=== PATIENT | female | born 1935 | race Caucasian/White ===

== ENCOUNTER 2016-08-01 17:20 | Inpatient (IN) | payer OTHER ==
[~2016-08-01 17:20] MED LIST: TYLENOL PO PRN; VENTOLIN HFA INH PRN; ZOFRAN IV PRN
--- NOTE | 2016-08-01 17:47 | HISTORY AND PHYSICAL ---
HISTORY OF PRESENT ILLNESS: Mrs. Amna Oconnor is an 80-year-old lady with a history of COPD, labile hypertension secondary to renal artery stenosis and paroxysmal supraventricular tachycardia who is well known to me. She has had a longstanding history of labile hypertension. Dr. Garcia performed angioplasty and stenting of the left renal artery in March 2016. Since that time her blood pressure has been much more easily managed. Over the past several weeks her blood pressure has been fluctuating wildly. She denies any chest pain, palpitations, or anginal equivalents. Because she was noted also to have a right-sided renal artery stenosis we referred her to Dr. Garcia for consideration of angioplasty and stenting of the right renal artery. He was unable to perform the arteriogram as her creatinine had jumped from 0.9 to 2.1. She presented to my office today complaining of labile hypertension. Her blood pressure has run from 160-190 whereas her diastolic blood pressures have ranged from 70-95. Again she denies any chest pain, palpitations, or anginal equivalents. PAST MEDICAL HISTORY: As above. PAST SURGICAL HISTORY: Surgical breast biopsy, cataract surgery, hysterectomy. ALLERGIES: Levaquin. MEDICATIONS: Advair 250/50 one puff b.i.d. Amlodipine 5 mg b.i.d. Clonidine 0.1 mg b.i.d. Digoxin 125 mcg daily. Lasix 20 mg daily. Losartan 50 mg b.i.d. Multaq 400 mg b.i.d. ProAir inhaler 2 puffs q.6 hours as needed for shortness of breath. FAMILY HISTORY: Father at age 73. He had a heart disease status post NH and hypertension. Her mother at age 92. She had hypertension and stroke. SOCIAL HISTORY: She is a former smoker. She does not consume alcoholic beverages. She is a . REVIEW OF SYSTEMS: She denies any recent weight gain or weight loss. HEENT: She wears glasses. She is hard of hearing. CV: No chest pain, palpitations, or anginal equivalents. Pulmonary: No shortness of breath, PND, orthopnea. GI: No reflux, dysphagia, melena, hematochezia, change in bowel habits, or rectal bleeding. Endocrine: No polyuria, no polydipsia. No cold or heat intolerance. Skin: No easy bruisability. : No leakage of urine with coughing or laughing. Neurologic: No migraines or seizures. PHYSICAL EXAMINATION: GENERAL: This is an elderly, frail, 80-year-old lady in no apparent distress. Blood pressure 180/80, pulse 80, height 73 inches, weight 125 pounds, BMI 16.5 HEENT: Fundi with arteriolar wall thickening. Pupils equal, round, reactive to light. Extraocular eye movements intact. TMs without bullae. NECK: Supple. No masses, JVD or bruits. CV: Regular rate and rhythm. LUNGS: Clear. ABDOMEN: Soft, nontender, with active bowel sounds. No hepatosplenomegaly. No abdominal bruits. EXTREMITIES: Without edema. SKIN: No palpable purpura. : Breast and rectal exam is deferred. NEUROLOGIC: Nonfocal. ASSESSMENT AND PLAN: 1. Acute renal failure. I suspect her renal failure is related to the use of losartan following angioplasty and stenting of the left coronary artery. I am going to begin normal saline at 75 mL per hour and we will recheck a BMP in the morning. We will also check an ultrasound of the kidneys. 2. Labile hypertension secondary to renal artery stenosis. I am going to stop both the amlodipine and losartan. I will increase the clonidine to 0.1 mg t.i.d. and add Adalat 60 mg daily. I am hoping once her kidney function normalizes that Dr. Garcia can proceed with angioplasty and stenting of the right coronary artery. 3. Paroxysmal atrial fibrillation. 4. Paroxysmal supraventricular tachycardia. She remains in normal sinus rhythm. We will continue digoxin for rate control and Multaq 400 mg b.i.d. She has not been able to tolerate beta blockers due to significant bradycardia.
[2016-08-01] MEDS: NS 1,000 ML IV SCH (17:58)
[2016-08-01] MEDS: LOVENOX SUBQ SCH (17:58)
[2016-08-01] MEDS: MULTAQ PO SCH (20:53)
[2016-08-01] MEDS: CATAPRES PO SCH (21:05)
[2016-08-01] MEDS: PROCARDIA ER PO SCH (21:05)
--- NOTE | 2016-08-02 07:35 | Diag Imaging Result Document ---
PROCEDURE NAME: US RENAL 2 (RETROPER) COMPLETE - 08/01/2016 RENAL ULTRASOUND: COMPARISON: None available. FINDINGS: The right kidney is located in the pelvis. There are several simple-appearing right renal cysts measuring up to 1.9 cm in the greatest dimension. No definite solid renal mass or hydronephrosis is identified. The right kidney measures 9 cm and left kidney measures 9.5 cm in the greatest longitudinal axis. The right renal cortex measures up to 0.8 cm and the left renal cortex measures up to 1.2 cm in thickness. The urinary bladder is completely nondistended. IMPRESSION: 1. Pelvic right kidney noted incidentally. 2. Several right renal cysts. Essentially unremarkable renal ultrasound, otherwise.
--- NOTE | 2016-08-02 07:41 | Diag Imaging Result Document ---
PROCEDURE NAME: CHEST-2 VIEWS - 08/02/2016 FRONTAL AND LATERAL CHEST, TWO VIEWS: COMPARISON: 01/23/2015. FINDINGS: The lungs are hyperexpanded. There is increased AP diameter to the chest. The heart is mildly enlarged. There are increased interstitial markings bilaterally believed to be fibrosis. However, the findings are slightly more pronounced in the lung bases compared to the prior exam thus there may be underlying infiltrates versus progression of the fibrosis. A granuloma is found in the apex. No effusions. IMPRESSION: 1. Severe emphysema with fibrosis. 2. Atelectasis, progressive fibrosis, or even small underlying infiltrates in the lung bases. [facility]
[2016-08-02] MEDS: ADVAIR 250/50 DISKUS INH SCH ×2 (08:05→20:12)
[2016-08-02 08:38] LABS: HEMATOCRIT 32.8 % (37.0-47.0); HEMOGLOBIN 10.9 g/dL (12.0-16.0); MCH 28.2 PG (27-31); MCHC 33.2 g/dL (33-37); MCV 84.8 FL (81-99); MPV 9.4 FL (7.4-10.4); RBC 3.87 XMIL (4.2-5.4)
--- NOTE | 2016-08-02 08:48 | PROGRESS NOTE ---
DATE: 08/02/2016 SUBJECTIVE: Ms. Oconnor has a history of labile hypertension secondary to renal artery stenosis. She had stenting of the left renal artery in the fall of 2016. Her blood pressure had been fluctuating wildly recently, and we referred her to Dr. Garcia for consideration of angioplasty and stenting of the right renal artery. She was noted to have a creatinine of 2.1; her baseline creatinine is 0.9. We admitted the patient to [facility] and hydrated her overnight with fluids. The renal ultrasound was grossly unremarkable. She has a longstanding history of COPD and pulmonary fibrosis. Unfortunately, she has been on amiodarone in the past and is currently taking Multaq for paroxysmal SVT. Her chest x-rays showed pulmonary fibrosis. She is having more shortness of breath with activities of daily living. She is maintaining O2 saturations of 93% to 95% on room air. OBJECTIVE: Vital signs: Temperature 97.9 degrees, pulse 57, BP 141/58. CV: Regular rate and rhythm. Lungs: Distant breath sounds with increased period of expiration. Abdomen: Soft, nontender, with active bowel sounds. ASSESSMENT AND PLAN: 1. Acute renal failure. We will continue gentle hydration, and I am awaiting the results of basic metabolic panel this morning. Once her creatinine has normalized to baseline, I believe that we could discharge her to home. 2. Chronic, chronic obstructive pulmonary disease. She does have pulmonary fibrosis most likely secondary to Multaq and amiodarone. I am going to begin Brovana nebulizer twice daily and ipratropium nebulized three times daily. 3. Labile hypertension, secondary to renal artery stenosis. Her blood pressure looks much better this morning; it was 141/58. We will continue to hold losartan and amlodipine. We will continue the clonidine, as well as the Adalat.
[2016-08-02 08:54] LABS: CALCIUM 8.4 mg/dL (8.8-10.2); POTASSIUM 5.4 mmol/L (3.5-5.1)
[2016-08-02] MEDS ORDERED: CATAPRES PO SCH (09:00)
[2016-08-02] MEDS: CATAPRES PO SCH ×3 (09:14→17:06)
[2016-08-02] MEDS: NS 1,000 ML IV SCH (09:14)
[2016-08-02] MEDS: PROCARDIA ER PO SCH (09:14)
[2016-08-02] MEDS: MULTAQ PO SCH (09:15)
[2016-08-02] MEDS: ASPIRIN PO SCH (09:15)
[2016-08-02] MEDS: LANOXIN PO SCH (09:16)
--- NOTE | 2016-08-02 11:37 | PROGRESS NOTE ---
DATE: 08/02/2016 SUBJECTIVE: Mrs. Oconnor has a longstanding history of labile hypertension secondary to renal artery stenosis. She had previously had angioplasty and stenting of the left renal artery in March of 2016. He had recently seen Dr. Garcia in anticipation of performing angioplasty and stenting of the right coronary artery. Her creatinine was elevated at 2.1. Her renal function is improving. Her creatinine has dropped from 2.1 to 1.7. She is voiding freely. An ultrasound of the kidneys was unremarkable. She does have a history of severe emphysema and pulmonary fibrosis. She has taken amiodarone in the past and has been taking Multaq 400 mg b.i.d. She has shortness of breath with activities of daily living. She denies any PND, orthopnea, or increasing peripheral edema. OBJECTIVE: Vital signs: Temperature 97.5, pulse 90, respirations 19, BP 160/62. CV: Regular rate and rhythm. Lungs: Distant breath sounds with increased period of expiration. Abdomen: Soft, nontender, with active bowel sounds. ASSESSMENT AND PLAN: 1. Acute renal failure. I will continue gentle hydration with normal saline and recheck a BMP in the morning. If her renal function has normalized, I believe that we can discharge her home. 2. Accelerated hypertension due to renal artery stenosis. We will continue clonidine 0.1 mg t.i.d. and Adalat 60 mg daily. I would like to try to keep her systolic blood pressures in the 150s and 160s. Once her renal function has normalized, I would like to refer her to Dr. Garcia for consideration of angioplasty and stenting of the right coronary artery. 3. Severe chronic obstructive pulmonary disease with pulmonary fibrosis. She is maintaining excellent O2 sats on room air. I am going to continue the Advair 250/50 one puff b.i.d., and I am going to try a trial of Brovana nebulized b.i.d. and ipratropium nebulized t.i.d.
[2016-08-02] MEDS: LOVENOX SUBQ SCH (17:06)
[2016-08-02] MEDS: BROVANA NEB INH SCH (20:12)
[2016-08-02] MEDS ORDERED: BROVANA NEB ONE (20:54)
[2016-08-02] MEDS: ATROVENT NEB INH SCH (23:29)
[2016-08-03] MEDS: MULTAQ PO SCH ×3 (01:50→21:27)
[2016-08-03 07:42] LABS: CALCIUM 8.6 mg/dL (8.8-10.2); POTASSIUM 5.1 mmol/L (3.5-5.1)
[2016-08-03] MEDS: ATROVENT NEB INH SCH ×4 (08:02→23:43)
[2016-08-03] MEDS: ADVAIR 250/50 DISKUS INH SCH ×2 (08:05→20:00)
[2016-08-03] MEDS: BROVANA NEB INH SCH ×3 (08:07→19:59)
[2016-08-03] MEDS: LANOXIN PO SCH (09:05)
[2016-08-03] MEDS: ASPIRIN PO SCH (09:07)
[2016-08-03] MEDS: PROCARDIA ER PO SCH (09:07)
[2016-08-03] MEDS: CATAPRES PO SCH ×3 (09:07→21:27)
--- NOTE | 2016-08-03 14:39 | PROGRESS NOTE ---
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 The patient was admitted with acute renal failure and the chart was reviewed. Her creatinine was down to 1.7 yesterday but her baseline is about 0.9. She has not had any further difficulty with shortness of breath although yesterday after an albuterol treatment, she had some racing heart and nervousness associated with that. In addition, her roommate is somewhat labile and I think this upset her. OBJECTIVE: Vital signs: Last recorded blood pressure from 6 a.m. was 157/81, pulse rate 82, respiratory rate is listed as 19. Temperature is 98.0 degrees. Fluid balance positive 1520. PHYSICAL EXAMINATION: General: She is a thin, white female, in no acute distress. She is alert, oriented x4. She is conversive and appropriate. Lungs: Clear to auscultation. There is no wheezing. There is slightly increased expiratory phase. Cardiovascular: Regular. She is not tachycardic. Abdomen: Benign. Extremities: 1+ pitting edema in the dependent areas behind the calf. LABORATORY: Electrolytes were normal. BUN is 34. Creatinine 1.7 which is almost identical to yesterday. ASSESSMENT/PLAN: 1. Acute renal failure. 2. I will continue to hydrate the patient and up the rate of her IV to 100 mL/h. We will recheck a BMP in the morning. I told her that I was not comfortable with that lack of progress overnight and which she would need to stay at least an additional day. 3. The patient's COPD is stable. The albuterol seems to be setting her off a little bit beds and I may forego full scale albuterol treatment as a result of that. We will monitor the situation and see if that is a necessary move or not. 4. The patient's blood pressure is stable and in acceptable range. The Adalat CC may be contributing to her lower extremity edema. I plan to apply graduated compression stockings rather than intermittent pneumatic compression boots and see if this will help with the swelling as well as increase her intravascular volume. 5. Indications for further hospitalization are lack of progress on her acute renal failure and lower extremity edema.
[2016-08-03] MEDS: NS 1,000 ML IV SCH (15:42)
[2016-08-03] MEDS ORDERED: BROVANA NEB ONE (18:58)
[2016-08-04] MEDS: NS 1,000 ML IV SCH (06:50)
[2016-08-04 07:28] LABS: MANUAL DIFF NEEDED? NO
[2016-08-04 07:41] LABS: BASO% 0.1 % (0.0-0.8); EOS# 0.05 X1000 (0.0-0.7); EOS% 0.6 % (0.0-10.0); HEMATOCRIT 31.6 % (37.0-47.0); HEMOGLOBIN 10.6 g/dL (12.0-16.0); IMM GRAN# 0.02 X1000 (0.0-0.04); IMM GRAN% 0.2 % (0.0-0.5); LYMPH# 0.91 X1000 (1.2-3.4); LYMPH% 10.5 % (20.5-51.1); MCHC 33.5 g/dL (33-37); MCV 83.6 FL (81-99); MONO# 0.63 X1000 (0.11-0.59); MONO% 7.3 % (1.7-9.3); MPV 9.4 FL (7.4-10.4); NEUT% 81.3 % (42.2-75.2); PLT 385 X1000 (130-400); RBC 3.78 XMIL (4.2-5.4)
[2016-08-04] MEDS: ATROVENT NEB INH SCH ×2 (07:56→15:55)
[2016-08-04] MEDS: BROVANA NEB INH SCH ×2 (07:56→22:19)
[2016-08-04] MEDS: ADVAIR 250/50 DISKUS INH SCH ×3 (08:06→22:19)
[2016-08-04 08:17] LABS: CALCIUM 8.2 mg/dL (8.8-10.2); POTASSIUM 4.7 mmol/L (3.5-5.1)
[2016-08-04] MEDS: PROCARDIA ER PO SCH (09:16)
[2016-08-04] MEDS: LANOXIN PO SCH (09:16)
[2016-08-04] MEDS: CATAPRES PO SCH ×3 (09:16→18:34)
[2016-08-04] MEDS: ASPIRIN PO SCH (09:16)
[2016-08-04] MEDS: MULTAQ PO SCH ×2 (09:17→21:44)
[2016-08-04] MEDS: NS IV SCH (13:37)
[2016-08-04] MEDS: SODIUM BICARBONATE IV SCH (13:37)
[2016-08-04] MEDS: APRESOLINE PO SCH ×3 (13:45→18:34)
--- NOTE | 2016-08-04 14:11 | PROGRESS NOTE ---
DATE: 08/04/2016 SUBJECTIVE: The patient feels but her son noted that this morning when she got up to just got to the restroom she was absolutely breathless with minimal exertion. This is not necessarily the case on previous days. She knows that all of her extremities are swelling since receiving IV fluids. We discussed her laboratory studies. Although they are returning to normal, they have not reached baseline and I did not feel at her fluid balance is equilibrated as of yet. Her bicarb is also low. Blood pressure has also been ranging upward. OBJECTIVE: Vital signs: 97.6, 88, 21, 85/74, 100% saturated. The electronic health record reflects 3 L nasal cannula but she is not wearing it when I go in to see her. Fluid balance: Not kept. General: She is a thin, white female, in no acute distress. Lungs: Clear with increased expiratory phase. No wheezes are noted. Cardiovascular: Regular. There is no ectopy. Extremities: There is 1 to 2+ edema in the upper and lower extremities, particularly in dependent areas. She has some ecchymosis about the left elbow at the site of previous blood draws. ASSESSMENT AND PLAN: 1. The patient's creatinine is down to 1.4 from 1.7 yesterday. Her bicarb was down to 15 which is quite abnormal for someone with COPD. I plan to give her continued IV normal saline with some bicarb added and we will recheck this in about 48 hours. 2. Some of the swelling may be driven by the vascular primary ability afforded to her by the use of Adalat. I have discontinued this and will try hydralazine for blood pressure management. She will continue on clonidine. Will monitor blood pressure. According to Dr. Massey, she has had 1 renal artery stent placed in the other renal artery is stenotic but because of her bump in creatinine, we have not been able to address this surgically. 3. I have written a consult for rehabilitation placement. I spoke with the patient and her son and they are amenable to any plan which will eventually get her home and back to her previously functional status. 4. The patient did complain of occasional palpitations but no prolonged runs of SVT. She is on an antiarrhythmic agent already. 5. Indication for prolonged hospitalization. The patient's creatinine has not returned to baseline. Her bicarb continues to be low. She is profoundly weak. Continues to be short of breath. See above note for plan.
[2016-08-05] MEDS: SODIUM BICARBONATE IV SCH (04:36)
[2016-08-05] MEDS: NS IV SCH (04:36)
[2016-08-05] MEDS: ATROVENT NEB INH SCH ×3 (07:41→23:26)
[2016-08-05] MEDS: ADVAIR 250/50 DISKUS INH SCH ×2 (07:41→23:27)
[2016-08-05] MEDS: APRESOLINE PO SCH ×3 (08:15→17:31)
[2016-08-05] MEDS: ASPIRIN PO SCH (08:15)
[2016-08-05] MEDS: CATAPRES PO SCH ×3 (08:15→17:31)
[2016-08-05] MEDS: LANOXIN PO SCH (08:15)
[2016-08-05] MEDS: MULTAQ PO SCH ×2 (08:15→20:29)
[2016-08-05] MEDS ORDERED: LASIX IV ONE (08:33)
[2016-08-05] MEDS ORDERED: BROVANA NEB ONE (13:47)
--- NOTE | 2016-08-05 14:21 | PROGRESS NOTE ---
DATE: 08/05/2016 SUBJECTIVE: The patient complains of shortness of breath today. She states that she was just sitting there and felt short of breath. She did not have any chest pain or palpitations that went along with this. She was just suddenly aware of being short of breath. She is eating reasonably well. OBJECTIVE: Vital signs: 98.0, 89, 20, 184/65. She is 93% saturated on room air. Fluid balance was not kept. Her meals are listed as bites only. General: She is a thin, white female in no acute distress. She is breathing slightly harder than yesterday but this is a minimal finding. Lungs: She is not actively wheezing. She has reasonable air movement. She has full breath sounds in the posterior regions. Extremities: Peripheral edema in the lower extremities has been abated to a great degree with the use of compression stockings. Her upper extremity still have some dependent edema. LABORATORIES: Laboratory holiday today. ASSESSMENT AND PLAN: 1. The patient's kidney function was on the way to recovery but her bicarb was low so we added bicarb to her drip. She has been having low level infusion over the last 24 hours. I do not think she is markedly more anemic or edematous than she was earlier. Her shortness of breath is concerning for a bit of fluid overload, particularly given her blood pressure problem. I am going to give her a low dose of Lasix today to try and equilibrate this a bit. We will discontinue sodium bicarb and normal saline drip tomorrow. We will recheck labs at that time. 2. Chronic obstructive pulmonary disease. This appears to be stable. 3. The patient and family are requesting rehabilitation. A bed will likely be sought today.
[2016-08-05] MEDS: BROVANA NEB INH SCH ×2 (15:25→23:27)
[2016-08-06] MEDS ORDERED: SODIUM BICARBONATE IV SCH (04:00)
[2016-08-06] MEDS ORDERED: NS IV SCH (04:00)
[2016-08-06] MEDS: APRESOLINE PO SCH ×3 (05:16→21:09)
[2016-08-06] MEDS ORDERED: BROVANA NEB ONE (07:16)
[2016-08-06 07:26] LABS: MANUAL DIFF NEEDED? NO
[2016-08-06 07:36] LABS: BASO% 0.3 % (0.0-0.8); EOS% 1.3 % (0.0-10.0); HEMATOCRIT 33.2 % (37.0-47.0); HEMOGLOBIN 10.9 g/dL (12.0-16.0); LYMPH# 1.08 X1000 (1.2-3.4); LYMPH% 13.7 % (20.5-51.1); MCH 28.4 PG (27-31); MCHC 32.8 g/dL (33-37); MCV 86.5 FL (81-99); MONO# 0.67 X1000 (0.11-0.59); MONO% 8.5 % (1.7-9.3); NEUT% 76.2 % (42.2-75.2); PLT 366 X1000 (130-400); RBC 3.84 XMIL (4.2-5.4)
[2016-08-06] MEDS: ADVAIR 250/50 DISKUS INH SCH ×2 (07:38→21:00)
[2016-08-06] MEDS: BROVANA NEB INH SCH (07:38)
[2016-08-06] MEDS: ATROVENT NEB INH SCH (07:38)
[2016-08-06 07:40] LABS: CALCIUM 8.3 mg/dL (8.8-10.2); POTASSIUM 4.5 mmol/L (3.5-5.1)
[2016-08-06] MEDS ORDERED: CATAPRES PO SCH (08:00)
[2016-08-06] MEDS: MULTAQ PO SCH ×2 (09:04→20:09)
[2016-08-06] MEDS: LANOXIN PO SCH (09:05)
[2016-08-06] MEDS: ASPIRIN PO SCH (09:10)
[2016-08-06] MEDS: CATAPRES PO SCH ×2 (10:10→17:26)
[2016-08-06] MEDS ORDERED: CATAPRES PO ONE (10:15)
--- NOTE | 2016-08-06 13:28 | PROGRESS NOTE ---
DATE: 08/06/2016 SUBJECTIVE: Patient states that she still feels a bit short of breath. She has been eating well. She really cannot put her finger on why she is more short of breath. She denies any chest pain. Has not had any episodes of supraventricular tachycardia. OBJECTIVE: 97.8, 92, 20 and 185/76. Fluid balance: Again these were not kept. PHYSICAL EXAM: Lungs: Clear. She has increased expiratory phase with probably baseline air movement. There is no wheezing. Cardiovascular: Regular and her precordium was rather hyperdynamic possibly due to her overall thinness. She has in edema in her upper extremities in the dependent areas. Lower extremity edema is improved with the compression stockings. LABORATORIES: White cell count 7.9, hematocrit 33.2. CO2 was up to 21. BUN 25, creatinine 1.3. ASSESSMENT AND PLAN: 1. The patient's acute renal failure continues to improve. She has improved CO2 although it is still low relative to someone who suffers from chronic COPD. Her creatinine is 1.3. I plan to discontinue her IV fluids and let all that edema somewhat equilibrate with her and then recheck her kidneys. I think it is safe for her to go on to rehabilitation and the social science instructor will contact the patient today about her preferences. 2. I noted on the patient's orders that she was getting Spiriva 3 times a day, anticholinergic by nebulizer as well as Brovana. I wonder if she is just getting hyperdynamic and tachycardic as a result of overstimulation by beta-agonist. Since she was on Advair before I changed her back to her usual dose of Advair only. I have discontinued the Brovana and I have changed her anticholinergic to once a day Spiriva. We will see how this makes her feel. 3. Rehabilitation bed is being sought. 4. It is not clear to me why physical therapy came and saw her over the weekend but has not seen her since that time. Clearly an order was written and clear that she was seen at 1 time but no longer. I will check into this.
[2016-08-07] MEDS: CATAPRES PO SCH ×3 (00:45→16:54)
[2016-08-07] MEDS: APRESOLINE PO SCH ×4 (03:41→19:59)
[2016-08-07] MEDS ORDERED: LASIX IV ONE (07:19)
[2016-08-07] MEDS: SPIRIVA INH SCH (07:44)
[2016-08-07] MEDS: ADVAIR 250/50 DISKUS INH SCH ×2 (07:44→19:15)
[2016-08-07] MEDS ORDERED: COZAAR PO SCH (09:00)
[2016-08-07] MEDS: LANOXIN PO SCH (09:29)
[2016-08-07] MEDS: ASPIRIN PO SCH (09:30)
[2016-08-07] MEDS: MULTAQ PO SCH ×2 (09:30→19:59)
--- NOTE | 2016-08-07 12:23 | PROGRESS NOTE ---
DATE: 08/07/2016 SUBJECTIVE: The patient states that she is breathing better today. She feels more comfortable, although she still breathless when she gets up, which does not seem as quite as intense. We discussed the end oversight on her respiratory medications. The patient and her son wondered why her aerosols have been discontinued and I explained the rationale. My last note that was taken listed her as having Spiriva 3 times a day. Actually, she was getting an anti-cholinergic respiratory treatment 3 times a day, as well as Brovana twice a day and Advair twice a day. Since going to the Spiriva and Advair mixture, her heart rate has slowed significantly and she feels better. I also discussed with her that her physical therapy had not been followed through since the weekend, according to the notes on the chart. OBJECTIVE: Vital Signs: Temperature is 97.5 degrees, pulse rate 69, blood pressure 185/71. She is 92% saturated on room air. Lungs: Patient's lungs are clear. She has an increased expiratory phase and generally fair air movement. She is in no distress. Cardiovascular: Regular in the 60s. Upper extremities: Show some resolution of the upper extremity edema, but not completely so. Lower extremities: Have compression stockings on. LABORATORIES: None today. ASSESSMENT AND PLAN: 1. The patient's acute renal failure was improved to a level 1.3 yesterday. Her CO2 improved. She is no longer on IV fluids. I think we are headed the right direction on this, but she will eventually need her renal artery stenosis addressed. 2. Aerosol treatments have been discontinued. She is doing well on Advair plus Spiriva only. 3. Yesterday I increased her clonidine to 0.2 three times a day, which did absolutely nothing for her blood pressure. I have brought her back down to 0.1 mg of clonidine 3 times daily. She will continue her hydralazine 50 mg three times daily. I have added a low dose of losartan 25 mg daily. We will continue to monitor her kidney function, with repeat labs in the morning. 4. Rehabilitation bed is being sought. 5. I contacted physical therapy personally to make sure that she was included on a daily list.
[2016-08-07] MEDS ORDERED: VASOTEC IV ONE (20:09)
[2016-08-08] MEDS: CATAPRES PO SCH ×3 (00:59→16:48)
[2016-08-08] MEDS: APRESOLINE PO SCH ×3 (04:28→21:10)
[2016-08-08] MEDS: ADVAIR 250/50 DISKUS INH SCH ×3 (07:57→20:16)
[2016-08-08] MEDS: SPIRIVA INH SCH (07:57)
[2016-08-08 08:23] LABS: CALCIUM 8.1 mg/dL (8.8-10.2); POTASSIUM 4.1 mmol/L (3.5-5.1)
--- NOTE | 2016-08-08 09:25 | PROGRESS NOTE ---
DATE: 08/08/2016 SUBJECTIVE: Ms. Oconnor was admitted to [facility] with acute renal failure. Her creatinine was 2.1. Her creatinine has dropped to 1.3. She is voiding freely. Her blood pressure remains quite labile. She denies any chest pain, palpitations, or anginal equivalents. She does have a history of renal artery stenosis. She has a history of severe chronic obstructive pulmonary disease with pulmonary fibrosis. She is maintaining O2 saturations of 91% to 93% on room air. She was unable to tolerate the Brovana and ipratropium secondary to tachycardia. She reports that she is breathing comfortably at rest, but does have shortness of breath with activity. She denies any PND, orthopnea or increasing peripheral edema. OBJECTIVE: Vital Signs: BP 196/66, pulse 74, respirations 15. CV: Regular rate and rhythm. Lungs: Clear. Abdomen: Soft, nontender, with active bowel sounds. ASSESSMENT AND PLAN: Accelerated hypertension. Her blood pressure is still too high. We will continue clonidine 0.1 mg three times a day and added Adalat 30 mg daily. We will continue hydralazine. I will consult Dr. Jg Garcia for consideration of performing an arteriogram with angioplasty and stenting of the right renal artery. Overall she is weak. We will continue physical therapy. We will attempt to find her a short-term rehabilitation bed.
[2016-08-08] MEDS: MULTAQ PO SCH ×2 (09:34→21:10)
[2016-08-08] MEDS: ADALAT CC PO SCH (09:35)
[2016-08-08] MEDS: ASPIRIN PO SCH (09:35)
[2016-08-08] MEDS: LANOXIN PO SCH (09:35)
--- NOTE | 2016-08-08 09:43 | EKG Report ---
Test Performed on : 08/07/2016 7:32:41 PM Test Reason : chest pain Blood Pressure : / mmHG Vent. Rate : 075 BPM Atrial Rate : 075 BPM P-R Int : 192 ms QRS Dur : 100 ms QT Int : 358 ms P-R-T Axes : 038 032 025 degrees QTc Int : 399 ms Normal sinus rhythm. with sinus arrhythmia. Nonspecific ST abnormality Abnormal ECG When compared with ECG of 18-JUL-2016 09:20, Left anterior fascicular block is no longer present Confirmed by Lilian QUINTEROS, Gilberto Saavedra ([id number]) on 08/10/2016 1:13:20 PM
[2016-08-09] MEDS: CATAPRES PO SCH ×2 (01:54→11:36)
[2016-08-09] MEDS: APRESOLINE PO SCH ×2 (05:40→12:38)
[2016-08-09 07:48] VITALS: BP 170/63
[2016-08-09] MEDS: ADVAIR 250/50 DISKUS INH SCH (08:46)
[2016-08-09] MEDS: SPIRIVA INH SCH (08:46)
--- NOTE | 2016-08-09 09:47 | PROGRESS NOTE ---
DATE: 08/09/2016 SUBJECTIVE: Ms. Oconnor was admitted to [facility] with acute renal failure. Renal function continues to improve. Her creatinine has dropped from 2.1 to 1.3. She is voiding freely. A renal ultrasound was unremarkable. She does have a history of severe chronic obstructive pulmonary disease with pulmonary fibrosis. She is maintaining O2 saturations of 90% to 94%. She ambulated in the halls and had less dyspnea. Her blood pressure is trending down, but still fluctuates. Systolic blood pressures have ranged from 146-170, whereas her diastolic blood pressures have been in the 50s and 60s. She is making slow progress with physical therapy. OBJECTIVE: Vital signs: Temperature 97.9 degrees, pulse 82, respirations 16, BP 170/63. CV: Regular rate and rhythm. Lungs: Distant breath sounds with increased period of expiration. Abdomen: Soft, nontender, with active bowel sounds. ASSESSMENT AND PLAN: 1. Chronic, chronic obstructive pulmonary disease, acute chronic obstructive pulmonary disease exacerbation. We will continue DuoNeb nebulizer treatments four times daily, as well as Spiriva one puff daily and Advair 250/50 one puff b.i.d. 2. Acute renal failure. Renal function continues to improve. We will recheck a basic metabolic panel this morning. 3. Accelerated hypertension secondary to renal artery stenosis. We will continue to adjust medicines in order to keep systolic blood pressures consistently in the 160s or below. Dr. Garcia wants to wait to perform an elective arteriogram with potential intervention until after she completes rehabilitation. 4. Physical debility. We will continue physical therapy and are looking for rehabilitation .
[2016-08-09 10:06] LABS: CALCIUM 8.3 mg/dL (8.8-10.2); POTASSIUM 4.5 mmol/L (3.5-5.1)
--- NOTE | 2016-08-09 11:20 | DISCHARGE SUMMARY ---
ADMISSION DATE: 08/01/2016 DISCHARGE DATE: 08/09/2016 DISCHARGE DIAGNOSES: 1. Acute renal failure secondary to acute tubular necrosis. 2. Accelerated hypertension secondary to renal artery stenosis. 3. Paroxysmal supraventricular tachycardia. 4. Severe COPD with pulmonary fibrosis. DISCHARGE INSTRUCTIONS: 1. The patient will be transferred via ambulance to [facility] in order to undergo short-term rehab. 2. Activity as tolerated. 3. Healthy heart diet. MEDICATIONS: Aspirin 81 mg daily. Catapres 0.1 mg t.i.d. Lanoxin 125 mcg daily. Multaq 400 mg b.i.d. Apresoline 50 mg q.8 hours. Adalat 30 mg daily. Advair 250/50 one puff b.i.d. Spiriva 1 puff daily. Lasix 40 mg daily. This is a chronically ill-appearing, 80-year-old lady in no apparent distress. Vital signs: Temperature 97.9 degrees, pulse 82, respiratory rate 15, BP 160/63. CV: Regular rate and rhythm. Lungs: Distant breath sounds with increased period of expiration. Abdomen: Soft, nontender, with active bowel sounds. HOSPITAL COURSE: Ms. Amna Oconnor was admitted to [facility] with acute renal failure. Her baseline creatinine is 0.9, her creatinine was 2.1. We admitted her to [facility] and cautiously rehydrated her with normal saline. We stopped the losartan. A renal ultrasound was grossly normal. There was no evidence of hydronephrosis. Her creatinine trended down with fluids and her creatinine was 1.3 at the time of discharge. She was voiding freely. She has a longstanding history of accelerated hypertension secondary to renal artery stenosis. She had angioplasty and stenting of the left renal artery. Her blood pressure fluctuates significantly. On admission we stopped the losartan and Norvasc. During her hospitalization we increased the clonidine to 0.1 mg t.i.d. and added hydralazine 50 mg t.i.d. and Procardia XL 30 mg daily. Her blood pressure was trending down. At the time of discharge her systolic blood pressures had ranged from 146-170 whereas her diastolic blood pressures had ranged from 58-64. It is our goal to try to keep her systolic blood pressures in the 160s or below. Dr. Nav Garcia saw her in consultation and will schedule her for elective arteriogram with possible angioplasty and intervention of the right renal artery after she completes short-term rehab. She does have a longstanding history of chronic obstructive pulmonary disease with severe pulmonary fibrosis. We tried her on a trial of Brovana and ipratropium. She was unable to tolerate those medications due to palpitations and a fast heart rate. We switched her to Spiriva and Advair. Her breathing improved. She still has some shortness of breath, with marked exertion. She was maintaining O2 saturations of 92% on room air. She has a history of paroxysmal SVT. She was continued on digoxin, Toprol-XL for rate control and Multaq 400 mg b.i.d. She had previously taken amiodarone. The patient has remained in normal sinus rhythm. Having reached maximum hospital benefit, the patient was discharged in stable condition.
[2016-08-09] MEDS: LANOXIN PO SCH (11:35)
[2016-08-09] MEDS: ADALAT CC PO SCH (11:35)
[2016-08-09] MEDS: MULTAQ PO SCH (11:35)
[2016-08-09] MEDS: ASPIRIN PO SCH (11:36)
== END 2016-08-09 13:51 | DRG 683 ==
LOC: EDIPHOLD 17:25 → 3N 19:22
PROVIDERS: ADMIT Internal Medicine; ATTEND Internal Medicine
DX: N17.0 Acute kidney failure with tubular necrosis (principal); I47.1 Supraventricular tachycardia; I48.0 Paroxysmal atrial fibrillation; J84.10 Pulmonary fibrosis, unspecified; J44.9 Chronic obstructive pulmonary disease, unspecified; I10 Essential (primary) hypertension; I70.1 Atherosclerosis of renal artery; Z79.899 Other long term (current) drug therapy; Z79.82 Long term (current) use of aspirin; Z79.51 Long term (current) use of inhaled steroids; Z82.49 Family history of ischemic heart disease and other diseases of the circulatory system; Z82.3 Family history of stroke; Z87.891 Personal history of nicotine dependence
CPT/HCPCS: 71020; 76770; 80048; 85025; 85027; 93005; 93010; 94640; 94761; J1650; J1940; J7030; 97116-GP; 97530-GP

== ENCOUNTER 2016-10-24 13:04 | Inpatient (IN) ==
[2016-10-24 14:00] LABS: BASO% 0.3 % (0.0-0.8); EOS# 0.09 X1000 (0.0-0.7); EOS% 1.2 % (0.0-10.0); HEMATOCRIT 28.9 % (37.0-47.0); HEMOGLOBIN 9.3 g/dL (12.0-16.0); LYMPH# 0.93 X1000 (1.2-3.4); LYMPH% 12.3 % (20.5-51.1); MANUAL DIFF NEEDED? NO; MCH 29.2 PG (27-31); MCHC 32.2 g/dL (33-37); MCV 90.9 FL (81-99); MONO# 0.62 X1000 (0.11-0.59); MONO% 8.2 % (1.7-9.3); MPV 9.4 FL (7.4-10.4); PLT 486 X1000 (130-400); RBC 3.18 XMIL (4.2-5.4)
[2016-10-24 14:12] LABS: INR 1.01; PROTIME 10.6 Seconds (9.2-11.7); PTT 26.1 Seconds (22.0-36.0)
--- NOTE | 2016-10-24 14:12 | Diag Imaging Result Doc PS360 ---
EXAM: CHEST-PORTABLE HISTORY: sob TECHNIQUE: AP portable erect at 1406 COMMENT: There is increasing alveolar opacity bilaterally consistent with pulmonary edema. The heart size is slightly enlarged. Possibility of pneumonia cannot be completely excluded. IMPRESSION: Pulmonary edema and cardiomegaly. Electronically signed by Trey Stanford 10/24/2016 2:10 PM
[2016-10-24] MEDS ORDERED: LASIX IV ONE (14:20)
[2016-10-24] MEDS ORDERED: NITROGLYCERIN TOP ONE (14:23)
[2016-10-24 15:02] LABS: ALBUMIN 3.3 g/dL (3.5-5.0); CALCIUM 8.1 mg/dL (8.8-10.2); POTASSIUM 4.1 mmol/L (3.5-5.1); TOTAL BILIRUBIN 0.35 mg/dL (0.20-1.00); TOTAL PROTEIN 6.8 g/dL (6.3-8.3)
--- NOTE | 2016-10-24 15:39 | PROVIDER DOCUMENTATION ---
This chart was entered by Guzman Baires Scribe, acting as scribe for Jg Chin MD. HPI-Respiratory General - General Chief Complaint: Shortness of Breath Stated Complaint: sob Time Seen by Provider: 10/24/16 13:13 Source: patient Allergies/Adverse Reactions: Patient Allergies Allergy/AdvReac Type Severity Reaction Status Date / Time levofloxacin [From Levaquin] Allergy Severe Unknown Verified 10/24/16 13:44 Home Medications: Home Medication List Medication Instructions Recorded Confirmed Last Taken Type Aspirin 81 mg PO DAILY 03/21/16 10/24/16 10/24/16 History Furosemide [Lasix] 40 mg PO DAILY 07/18/16 10/24/16 10/24/16 History Digoxin [Lanoxin] 125 microgm PO DAILY #30 tablet 08/09/16 10/24/16 10/24/16 Rx Dronedarone [Multaq] 400 mg PO BID #60 tablet 08/09/16 10/24/16 10/24/16 Rx Fluticasone/Salmet 250/50 INH 1 puff INH BID #1 inhaler 08/09/16 10/24/16 Rx [Advair 250/50 Diskus] Hydralazine [Apresoline] 50 mg PO Q8H #90 tablet 08/09/16 10/24/16 10/24/16 Rx Nifedipine E.r. [Adalat cc] 30 mg PO DAILY #30 tablet 08/09/16 10/24/16 Rx Tiotropium [place] Inhaler 1 puff INH RTDAILY #1 inhaler 08/09/16 10/24/1610/24 Rx [Spiriva] - History of Present Illness-Resp Nature of Presenting Problem: Patient is a 81 y/o F that presents with shortness of breath and edema x several weeks in which it got worse today. Patient is followed by , , and . Patient denies fever/chills, chest pain. Quality of Pain: reports: tightness Severity in ED: reports: moderate, severe Onset/Duration: reports: gradual, other (several weeks) Timing: reports: still present, getting worse (last 24 hours) Context: denies: recent URI, aspiration/choking Cough Quality/Degree: reports: no cough Modifying Factors: worse with: exertion, lying down Associated Symptoms: reports: shortness of breath, short of breath. denies: chest pain/soreness, cough, fever/chills, nasal congestion, nasal drainage, wheezing Similar Symptoms Previously?: Yes Recently seen or treated by another doctor?: No Review of Systems - Adult - REVIEW OF SYSTEMS - ADULT Constitutional: denies: chills, fever Eyes: reports: no symptoms reported Ears, Nose, Mouth & Throat: reports: no symptoms reported Cardiovascular: reports: edema. denies: palpitations, syncope Respiratory: reports: dyspnea on exertion, shortness of breath. denies: wheezing Gastrointestinal: denies: abdominal pain, diarrhea, nausea, vomiting Genitourinary: reports: no symptoms reported Musculoskeletal: reports: no symptoms reported Integumentary: reports: no symptoms reported Neurological: reports: no symptoms reported Psychiatric: reports: no symptoms reported Endocrine: reports: no symptoms reported Hematologic/Lymphatic: reports: no symptoms reported Allergic/Immunologic: reports: no symptoms reported All Other Systems: Reviewed and Negative Past History - Adult - PAST MEDICAL HISTORY-ADULT Review of Records: reports: Old Records Reviewed, Nursing Assessment Review, Medications Reviewed Cardiovascular: reports: HTN Respiratory: reports: COPD - PRIOR SURGERIES/PROCEDURES Surgical/Procedure History: reports: other (L nephrectomy) - IMMUNIZATION STATUS Childhood Immunizations: See Nurse Assessment Flu Vaccine: See Nurse Assessment - FAMILY HISTORY Family History: reviewed, not pertinent - SOCIAL HISTORY Smoking: quit greater than 1 year, cigarettes Living Situation: family Physical Exam-General - PHYSICAL EXAM-ADULT Initial Vital Signs Reviewed: Yes - CONSTITUTIONAL General Appearance: alert, moderate distress - EYES Eyes: PERRL/EOMI, pink conjunctivae - HEAD, EARS, NOSE, MOUTH & THROAT HENMT: normocephalic/atraumatic, moist mucous membranes, normal ENT inspection - NECK Neck: full range of motion, normal inspection - RESPIRATORY Respiratory: no accessory muscle use, respiratory distress (mild), decreased breath sounds (at bases) - CARDIOVASCULAR Cardiovascular: regular rate, rhythm, no murmur - GASTROINTESTINAL (ABDOMEN) Abdominal Exam: normal bowel sounds, non tender, soft - MUSCULOSKELETAL Back Exam: other (edema noted to sacral area). negative: vertebral tenderness Extremity: no calf tenderness, pedal edema (bilateral 4 plus pitting) - SKIN Integumentary: normal turgor, warm/dry - NEUROLOGIC Neurologic: grossly normal, no motor/sensory deficits Progress - PLAN OF CARE/RESULTS Progress/Plan/Lab Results: Vital Signs - 8 hr 10/24/16 13:27 10/24/16 14:16 10/24/16 15:13 Temperature 98.2 F Pulse Rate 73 74 70 Respiratory Rate 24 25 H 18 Blood Pressure 139/53 141/71 151/67 O2 Sat by Pulse Oximetry 91 L 93 L 94 L Laboratory Results - last 24 hr 10/24/16 10/24/16 10/24/16 13:21 13:21 13:21 WBC 7.54 RBC 3.18 L Hgb 9.3 L Hct 28.9 L MCV 90.9 MCH 29.2 MCHC 32.2 L RDW Std Deviation 16.0 H Plt Count 486 H MPV 9.4 Neut % (Auto) 78.0 H Lymph % (Auto) 12.3 L [place] % (Auto) 8.2 Eos % (Auto) 1.2 Baso % (Auto) 0.3 Neut # (Auto) 5.88 Lymph # (Auto) 0.93 L [place] # (Auto) 0.62 H Eos # (Auto) 0.09 Baso # (Auto) 0.02 PT 10.6 INR 1.01 PTT (Actin FS) 26.1 Sodium 139 Potassium 4.1 Chloride 104 Carbon Dioxide 21 L Anion Gap 14 BUN 36 H Creatinine 1.9 H Estimated GFR/1.73 m2 25 BUN/Creatinine Ratio 19 Glucose 102 Calculated Osmolality 286 Calcium 8.1 L Total Bilirubin 0.35 AST 26 ALT 13 Alkaline Phosphatase 89 Creatine Kinase 78 Troponin T Total Protein 6.8 Albumin 3.3 L Globulin 3.5 Albumin/Globulin Ratio 0.9 10/24/16 13:21 WBC RBC Hgb Hct MCV MCH MCHC RDW Std Deviation Plt Count MPV Neut % (Auto) Lymph % (Auto) [place] % (Auto) Eos % (Auto) Baso % (Auto) Neut # (Auto) Lymph # (Auto) [place] # (Auto) Eos # (Auto) Baso # (Auto) PT INR PTT (Actin FS) Sodium Potassium Chloride Carbon Dioxide Anion Gap BUN Creatinine Estimated GFR/1.73 m2 BUN/Creatinine Ratio Glucose Calculated Osmolality Calcium Total Bilirubin AST ALT Alkaline Phosphatase Creatine Kinase Troponin T 0.040 Total Protein Albumin Globulin Albumin/Globulin Ratio Orders Category Date Time Status cxr [CHEST-PORTABLE] [RAD] Stat Exams 10/24/16 13:46 Completed CBC WITH ELECTRONIC DIFF [HEME] Stat Lab 10/24/16 13:21 Completed CK PROFILE [SP CHEM] Stat Lab 10/24/16 13:21 Completed COMPREHENSIVE METABOLIC PANEL [CHEM] Stat Lab 10/24/16 13:21 Completed PROTIME WITH INR [COAG] Stat Lab 10/24/16 13:21 Completed PTT [COAG] Stat Lab 10/24/16 13:21 Completed TROPONIN T Stat Lab 10/24/16 13:21 Completed Furosemide [Lasix] Med 10/24/16 14:20 Discontinued 80 mg IV NOW ONE Nitroglycerin Med 10/24/16 14:23 Discontinued 1 inch TOP NOW ONE Result Diagrams: 10/24/16 13:21 10/24/16 13:21 - REASSESSMENT Reassessment #1 Time Reassessed: 15:19 Status: unchanged (I spoke with Dr Massey via telephone and reported lab, physical findings , x ray findings, etc. Dr Massey reported that he would be over shortly and hung up the phone.) - XRAY 1 XRAY Study: Chest Impression: Abnormal XRAY Interpretation: pulmonary edema and CMG Departure - Departure Date of Disposition Decision: 10/24/16 Time of Disposition Decision: 15:36 DIAGNOSIS: Pulmonary edema Disposition: ADMITTED INPATIENT 09 Certified Medical Emergency: Emergent Condition: Fair - Critical Care Note This patient required my direct & personal management of CC.: Yes This chart was documented by the indicated scribe, (Guzman Baires, Scribe) and accurately reflects the services I performed and decisions made by me, Jg Chin MD, as attested by the provider's signature.
[2016-10-24] MEDS ORDERED: TYLENOL PO PRN (17:17)
[2016-10-24] MEDS ORDERED: DESYREL PO PRN (17:17)
[2016-10-24] MEDS ORDERED: ZOFRAN IV PRN (17:17)
[2016-10-24 17:25] LABS: URINE CULTURE NEEDED? NO; URINE MICRO REVIEW NEEDED? NO; URINE SOURCE CATH
[2016-10-24 17:42] LABS: BILIRUBIN URINE NEGATIVE (NEGATIVE); BLOOD URINE NEGATIVE (NEGATIVE); COLOR YELLOW; GLUCOSE URINE NEGATIVE (NEGATIVE); LEUKOCYTES URINE NEGATIVE (NEGATIVE); NITRITE URINE NEGATIVE (NEGATIVE); PH URINE 5.5; PROTEIN URINE 100 mg/dL (NEGATIVE); TURBIDITY URINE CLEAR (CLEAR); UROBILINOGEN URINE NORMAL (NORMAL)
[2016-10-24 17:43] LABS: UR EPITHELIAL CELLS <10 /HPF (<10); URINE BACTERIA NEGATIVE /HPF; URINE RBC <10 /HPF (<10); URINE WBC <10 /HPF (<10)
[2016-10-24 17:59] LABS: ALLEN TEST YES; BLOOD TYPE ARTERIAL; DRAW SITE R RADIAL; METHB 0.5 % (0.0-1.5); O2(CT) 11.4 mL/dL (15.0-23.0); PCO2(98.6) 31 mmHg (35-45); PO2(98.6) 51 mmHg (60-100); SAMPLE BLOOD; SAO2 90.4 % (95.0-100.0); THB 9.1 g/dL (11.5-17.4); pH(98.6) 7.48 (7.35-7.45)
[2016-10-24 18:01] LABS: MODALITY CANNULA
--- NOTE | 2016-10-24 18:09 | HISTORY AND PHYSICAL ---
HISTORY OF PRESENT ILLNESS: Ms. Amna Oconnor is an 81-year-old lady with a history of chronic respiratory failure with hypoxia secondary to severe COPD, labile hypertension secondary to renal artery stenosis, paroxysmal supraventricular tachycardia, and essential hypertension, who is well known to me. She also has a history of chronic renal insufficiency. Her baseline creatinine runs from 1.8-2.2. She presented to the ER complaining of increasing shortness of breath, increasing work of breathing, persistent nonproductive cough, and generalized malaise. Her chest x-ray showed chronic COPD-type changes, with bilateral interstitial edema. A previous echocardiogram had demonstrated diastolic dysfunction. We had recently tried her on Brovana and ipratropium at home, and she reports that her breathing was worse on the nebulizer treatments. She has been trying to follow a salt and fluid restricted diet, and had been taking Lasix. Her creatinine jumped to 3.0, and so Dr. Diane held her Lasix. Over the past several days, she has had orthopnea, PND, increasing dyspnea with exertion that improved with rest, and increasing peripheral edema. She denied any chest pain, palpitations, or anginal equivalents. PAST MEDICAL HISTORY: 1. Labile hypertension secondary to renal artery stenosis. 2. Chronic respiratory failure with hypoxia, secondary to COPD. 3. Chronic congestive heart failure secondary to diastolic dysfunction, paroxysmal supraventricular tachycardia. PAST SURGICAL HISTORY: 1. Surgical breast biopsy. 2. Cataract surgery. 3. Hysterectomy. ALLERGIES: Levaquin. FAMILY HISTORY: Father at the age of 73. He had heart disease, status post AR and hypertension. Mother at age 92. She had hypertension and stroke. SOCIAL HISTORY: She is a former smoker. She does not consume alcoholic beverages. She is a . MEDICATIONS: 1. Aspirin 81 mg daily. 2. Digoxin 125 mcg daily. 3. Multaq 400 mg b.i.d. 4. Advair 250/50 one puff b.i.d. 5. Lasix 40 mg daily, and may take an additional Lasix if she gains 2 pounds in 24 hours. 6. Apresoline 50 mg t.i.d. 7. Nifedipine 30 mg daily. 8. Spiriva 1 inhalation daily. 9. Trazodone 50 mg at bedtime p.r.n. insomnia. REVIEW OF SYSTEMS: Constitutional: She denies any recent weight gain or weight loss. HEENT: She wears glasses. She is hard of hearing. Cardiovascular: No chest pain, palpitations, or anginal equivalents. Pulmonary: See HPI. Gastrointestinal: No reflux dysphagia, melena, hematochezia, change in bowel habits, or rectal bleeding. Endocrine: No polyuria, no polydipsia. No cold or heat intolerance. Skin: No easy bruisability. Genitourinary: No leakage of urine with coughing or laughing. Neurologic: No migraines or seizures. OBJECTIVE: General: This is a chronically ill-appearing 81-year-old lady in mild distress secondary to shortness of breath. Vital Signs: Temperature 98.5 degrees, pulse 73, respiratory rate 25, BP 158/71, O2 saturation 91% on 2 L of O2. HEENT: Fundi with arteriolar wall thickening. Pupils equal, round, reactive to light. Extraocular eye movements intact. TMs without bullae. Neck: Supple. No masses, JVD, or bruits. Cardiovascular: Regular rate and rhythm. Lungs: Diffuse end-expiratory wheezing with forced expiration and bibasilar crackles. Abdomen: Soft, nontender, with active bowel sounds. Extremities: 2+ pitting edema bilaterally. Breast: Deferred. Gynecologic: Deferred. Rectal: Deferred. Neurologic: Nonfocal. ASSESSMENT AND PLAN: 1. Tbrjq-bs-cfztchm respiratory failure, with hypoxia secondary to acute chronic obstructive pulmonary disease exacerbation and xryfz-nu-gaztshy congestive heart failure secondary to diastolic dysfunction. I will continue Advair 250/50 one puff b.i.d., Spiriva 1 inhalation daily, supplemental O2, and will add DuoNeb nebulizer treatments q.[address] her on a salt and fluid restricted diet. I will aggressively diurese her with Lasix. We will closely monitor her creatinine with diuresis. I am going to recheck a 2D echocardiogram with color Doppler and spectral flow Doppler studies in the morning. I will recheck a PA and lateral chest x-ray, BMP, and a CBC in the morning. 2. Hypertension secondary to renal artery stenosis. We will continue her current regimen of medications. 3. Chronic renal insufficiency. Her baseline creatinine runs from 1.8-2.2. Her creatinine was 1.9 today on admission. We will monitor her renal function closely as we diurese her for the underlying congestive heart failure. Ms. Oconnor does have a living will. In the event of a cardiopulmonary arrest, she wants no heroic measures to be undertaken. We have established a No Code Blue Level 1. Given her clinical presentation and comorbid conditions, I believe that it is necessary to admit her to the hospital. I anticipate that if we attempted to treat her as an outpatient, that she would be at high risk for an adverse event such as . I anticipate that she will be in the hospital for at least 2 midnights, and I will therefore place her in inpatient status. cc: Olivia Massey MD
[2016-10-24] MEDS: ADVAIR 250/50 DISKUS INH SCH (19:49)
[2016-10-24] MEDS: DUONEB (A & A) INH SCH ×2 (19:49→22:52)
[2016-10-24] MEDS: APRESOLINE PO SCH (21:33)
[2016-10-24] MEDS: LOVENOX SUBQ SCH (21:34)
[2016-10-24] MEDS: LASIX IV SCH (21:34)
[2016-10-24] MEDS: MULTAQ PO SCH (21:34)
[2016-10-25] MEDS: DUONEB (A & A) INH SCH ×6 (03:40→23:20)
[2016-10-25] MEDS: APRESOLINE PO SCH ×3 (05:01→20:10)
[2016-10-25 06:12] LABS: CALCIUM 7.9 mg/dL (8.8-10.2); POTASSIUM 3.7 mmol/L (3.5-5.1)
[2016-10-25] MEDS: SPIRIVA INH SCH (07:40)
[2016-10-25] MEDS: ADVAIR 250/50 DISKUS INH SCH ×2 (07:40→19:35)
[2016-10-25] MEDS: ASPIRIN PO SCH (08:55)
[2016-10-25] MEDS: LANOXIN PO SCH (08:55)
[2016-10-25] MEDS: ADALAT CC PO SCH (08:56)
[2016-10-25] MEDS: MULTAQ PO SCH ×2 (08:56→20:10)
[2016-10-25] MEDS: LASIX IV SCH ×2 (08:56→20:10)
--- NOTE | 2016-10-25 09:20 | ECHO REPORT ---
ORDER DATE: 10/24/2016 INTERPRETING PHYSICIAN: Richard Joe MD INDICATION: An 81-year-old female with CHF and shortness of breath. M-MODE MEASUREMENTS: Right ventricle: 3.4 cm. Left ventricle end diastole: 4.5 cm. Left ventricle end systole: 2.4 cm. Posterior wall: 1.1 cm. Interventricular septum: 1.2 cm. Left atrium: 4.0 cm. Aortic root: 2.8 cm. SUMMARY OF 2-DIMENSIONAL IMAGIN. Left ventricular function is normal with an ejection fraction of 69%. The chamber is not dilated. 2. The left atrium is dilated significantly. 3. The mitral valve shows a ztjg-yt-mqqwymvu degree of regurgitation. 4. The pulse wave Doppler of mitral inflow shows "normal" E/A ratio. The actual ratio is very high suggesting elevation of the left atrial pressure. 5. The pulse wave Doppler of pulmonary venous flow shows predominance of the diastolic component. The deceleration time of the diastolic component is short which usually indicates elevation of left atrial pressure. 6. The tissue Doppler of septal and lateral mitral annulus averages 10 cm. 7. The E/E prime ratio is elevated. That would be suggestive of elevation of left atrial pressure. 8. The mitral annulus shows moderate calcification. 9. The tricuspid valve shows a moderate degree of regurgitation. 10.The pulmonary pressure is estimated at 76 mmHg to 81 mmHg. 11.The pulmonic valve shows a mild degree of regurgitation. 12.The aortic valve opens normally. Color flow mapping shows no evidence of aortic regurgitation. There is a trivial pericardial effusion. SUMMARY: In summary, this study shows: 1. Normal left ventricular systolic function with a mild degree of concentric left ventricular hypertrophy. 2. Trivial pericardial effusion. 3. Elevation of left atrial pressure with enlargement of the left atrium and significant pulmonary hypertension in the range of 76 mmHg to 81 mmHg. This combination of findings suggests that this patient is in a state of fluid overload. Renal failure if present may well explain all these findings. Clinical correlation is recommended. cc: MD Olivia Moreau MD
--- NOTE | 2016-10-25 09:52 | PROGRESS NOTE ---
DATE: 10/25/2016 SUBJECTIVE: This is an 81-year-old who presented on 10/24/2016 with history of chronic respiratory failure, chronic hypoxia secondary severe COPD, labile hypertension secondary to renal artery stenosis, paroxysmal supraventricular tachycardia, and essential hypertension. Patient of Dr. Massey. History of chronic renal insufficiency. Her baseline creatinine runs 1.8-2.2. Presented to the emergency room with increasing shortness of breath with increasing work of breathing, persistent nonproductive cough, generalized malaise. X-ray showed chronic COPD changes with bilateral interstitial edema. Previous echocardiogram demonstrated diastolic dysfunction. Recently tried her on Brovana and ipratropium at home. Reports that the breathing was worse on the nebulized treatments. She has been trying to follow a salt, fluid restriction and has been taking Lasix. Creatinine jumped to 3.00. Dr. Diane held her Lasix. Over several days, she has had orthopnea, paroxysmal nocturnal dyspnea, increased dyspnea on exertion. That improved with rest and increasing peripheral edema. She states she feels about the same today. No chest pain. OBJECTIVE: Vital Signs: Afebrile. Temp 97.9 degrees, pulse 90, respirations 86, blood pressure 152 to 186 over 54 to 70. Lungs: Clear in all lung olson. Cardiovascular: Regular rhythm and rate without murmur or S3. Abdomen: Soft. Skin: Warm and dry. Good urine output 5 L. LAB: Reviewed from this morning. Sodium 140, potassium 3.7, chloride 103, bicarb 24, BUN 37, creatinine 2.0, troponin 0.04, 0.130, 0.184. CPK 74 and 66. ASSESSMENT AND PLAN: 1. Ykkdy-sp-pstlfrx respiratory failure with hypoxia secondary to acute chronic obstructive pulmonary disease exacerbation. Xzzpm-zm-eqzhlyc congestive heart failure which is diastolic dysfunction. So ejection fraction with normal ejection fraction. Continue her Advair, Spiriva, supplemental O2, DuoNebs. Place her on fluid restriction and diuresed her with Lasix aggressively. Creatinine seems to have improved. Follow electrolytes. 2. Hypertension. History of renal artery stenosis. Aware. 3. Chronic renal insufficiency. 4. Creatinine baseline creatinine 1.8 to 2.2. Her creatinine was 1.9 yesterday and it is 2.0, I guess, today. Chest x-ray from yesterday shows pulmonary edema and cardiomegaly. 5. Review orders: Was given an inch of nitroglycerine paste yesterday. She takes aspirin 81 mg a day, digoxin 125 mcg a day, Multaq 400 mg p.o. b.i.d. She is on fluticasone. She is on Lasix 40 mg IV q.12 hours, hydralazine 50 mg p.o. q.8 hours, nifedipine ER 30 mg a day, tiotropium bromide. She gets trazodone 50 mg at bedtime. 6. We will follow her electrolytes, CBC. I think we ought to check a T4, TSH, B12 and folate. cc: MD Olivia Hayes MD
[2016-10-25] MEDS: LOVENOX SUBQ SCH (20:10)
[2016-10-26] MEDS: DUONEB (A & A) INH SCH ×6 (04:04→23:02)
[2016-10-26] MEDS: APRESOLINE PO SCH ×4 (05:03→21:51)
[2016-10-26 05:35] LABS: BASO% 0.6 % (0.0-0.8); EOS# 0.24 X1000 (0.0-0.7); EOS% 3.3 % (0.0-10.0); HEMATOCRIT 27.5 % (37.0-47.0); HEMOGLOBIN 9.1 g/dL (12.0-16.0); IMM GRAN# 0.02 X1000 (0.0-0.04); IMM GRAN% 0.3 % (0.0-0.5); LYMPH# 1.59 X1000 (1.2-3.4); LYMPH% 22.1 % (20.5-51.1); MANUAL DIFF NEEDED? NO; MCHC 33.1 g/dL (33-37); MCV 87.6 FL (81-99); MONO# 0.65 X1000 (0.11-0.59); MPV 9.1 FL (7.4-10.4); NEUT% 64.7 % (42.2-75.2); PLT 475 X1000 (130-400); RBC 3.14 XMIL (4.2-5.4)
[2016-10-26 06:35] LABS: FREE T4 1.44 ng/dL (0.93-1.70)
[2016-10-26] MEDS: ADALAT CC PO SCH (08:00)
[2016-10-26] MEDS: LANOXIN PO SCH (08:00)
[2016-10-26] MEDS: LASIX IV SCH ×3 (08:00→21:52)
[2016-10-26] MEDS: ASPIRIN PO SCH (08:00)
[2016-10-26] MEDS: MULTAQ PO SCH ×3 (08:01→21:53)
--- NOTE | 2016-10-26 09:06 | Diag Imaging Result Doc PS360 ---
EXAM: CHEST-PORTABLE INDICATION: chf, copd TECHNIQUE: One view COMPARISON: 10/24/2016 FINDINGS: Bilateral consolidations are essentially stable suggesting pulmonary edema. A component of pneumonia is certainly possible in the right clinical scenario, however. No new consolidations are appreciated. Cardiac silhouette is stable. IMPRESSION: Stable chest. Electronically signed by Addi Castillo 10/26/2016 9:03 AM
--- NOTE | 2016-10-26 11:01 | PROGRESS NOTE ---
DATE: 10/26/2016 SUBJECTIVE: Ms. Oconnor is feeling better, definitely a lot better, breathing better, more comfortable. I think we will get her [place] catheter out. OBJECTIVE: Vital signs: She remains afebrile at 97.9, pulse 92, respirations 18, blood pressure 171/63. CVP less than 6 cm. Lungs: Clear in all lung olson. Cardiovascular: Regular rhythm and rate without murmur or S3. Abdomen: Soft. Skin: Warm and dry. Good urine output, over almost 4 L. LABORATORY DATA: White count 7190, hematocrit 27, platelet count 475,000. Troponin 0.180. Folate was 6.4 and B12 was 1.79, so I am going to supplement both of those. Chest x-ray: Stable chest. ASSESSMENT AND PLAN: 1. Acute on chronic respiratory failure with hypoxia secondary to acute chronic obstructive pulmonary disease exacerbation. She is doing better. Continue present treatment, bronchodilators, supplement her O2. 2. Hypertension. Blood pressure well controlled. 3. Chronic renal insufficiency. Creatinine appears to be stable. Her lab from this morning noted she has B12 and folate deficiency. Noted also that her troponin was 0.184, 0.180. I do not think this represents coronary ischemia. Echocardiogram with Doppler done on 10/24/2016: Normal left ventricular systolic function, mild degree of concentric left ventricular hypertrophy, trivial pericardial effusion, elevation of atrial pressure with enlargement of left atrium and significant pulmonary hypertension in the range of 81 mmHg. 4. Review of orders: I do not see any change at this point. It is possible she may get to go home tomorrow. She is getting Lasix 40 mg IV every 12. cc: MD Olivia Hayes MD
[2016-10-26] MEDS: ADVAIR 250/50 DISKUS INH SCH ×2 (11:40→19:25)
[2016-10-26] MEDS: SPIRIVA INH SCH (11:40)
[2016-10-26] MEDS: FOLIC ACID PO SCH ×3 (12:15→21:52)
[2016-10-26] MEDS: CYANOCOBALAMIN IM SCH (12:15)
[2016-10-26] MEDS: LOVENOX SUBQ SCH ×2 (19:49→21:53)
[2016-10-27] MEDS: DUONEB (A & A) INH SCH ×5 (03:22→23:16)
[2016-10-27 04:31] LABS: MANUAL DIFF NEEDED? NO
[2016-10-27 04:34] LABS: BASO% 0.5 % (0.0-0.8); EOS# 0.34 X1000 (0.0-0.7); EOS% 4.5 % (0.0-10.0); HEMATOCRIT 27.4 % (37.0-47.0); HEMOGLOBIN 8.9 g/dL (12.0-16.0); IMM GRAN# 0.03 X1000 (0.0-0.04); IMM GRAN% 0.4 % (0.0-0.5); LYMPH# 1.77 X1000 (1.2-3.4); LYMPH% 23.4 % (20.5-51.1); MCH 28.5 PG (27-31); MCHC 32.5 g/dL (33-37); MCV 87.8 FL (81-99); MONO# 0.65 X1000 (0.11-0.59); MONO% 8.6 % (1.7-9.3); MPV 8.7 FL (7.4-10.4); NEUT% 62.6 % (42.2-75.2); PLT 483 X1000 (130-400); RBC 3.12 XMIL (4.2-5.4)
[2016-10-27] MEDS: APRESOLINE PO SCH ×3 (04:45→19:59)
[2016-10-27 04:57] LABS: CALCIUM 8.1 mg/dL (8.8-10.2); MAGNESIUM 1.7 mg/dL (1.5-2.7); POTASSIUM 3.4 mmol/L (3.5-5.1)
--- NOTE | 2016-10-27 08:19 | Diag Imaging Result Doc PS360 ---
EXAM: CHEST-2 VIEWS INDICATION: copd TECHNIQUE: 2 views COMPARISON: 10/26/2016 FINDINGS: Bilateral consolidations suggesting edema +/- pneumonia are essentially stable. No new consolidation is appreciated. Cardiac silhouette is stable. IMPRESSION: Stable chest. Electronically signed by Addi Castillo 10/27/2016 8:17 AM
[2016-10-27] MEDS: FOLIC ACID PO SCH ×2 (08:24→19:59)
[2016-10-27] MEDS: LANOXIN PO SCH (08:24)
[2016-10-27] MEDS: ASPIRIN PO SCH (08:24)
[2016-10-27] MEDS: MULTAQ PO SCH ×2 (08:24→19:59)
[2016-10-27] MEDS: ADALAT CC PO SCH (08:24)
[2016-10-27] MEDS: CYANOCOBALAMIN IM SCH (08:25)
[2016-10-27] MEDS: LASIX IV SCH ×2 (08:25→19:59)
--- NOTE | 2016-10-27 08:36 | PROGRESS NOTE ---
DATE: 10/27/2016 SUBJECTIVE: She is feeling really good. She says she feels much better. She says she enjoys the food here. Service has been great and she is definitely better. PHYSICAL EXAMINATION: Vital Signs: Temperature 97.7 degrees, pulse 68, respirations 16, blood pressure 130/67. HEENT: Pupils are equal. CVP less than 6 cm. Lungs: Clear in all lung olson anterolateral. Cardiovascular Examination: Regular rhythm and rate without murmur or S3. Abdomen: Soft. Skin: Is warm and dry. Is and Os: Urine output has been almost 3.5 L. LAB: Today, white count 7550, hematocrit 27, platelet count 483,000. Sodium 138, potassium 3.4, chloride 99, BUN 37, creatinine 1.3. Troponin back yesterday was 0.18. We supplemented some potassium and her folate yesterday. She is down to 1 L O2. ASSESSMENT AND PLAN: 1. Acute on chronic respiratory failure with hypoxemia secondary to acute chronic obstructive pulmonary disease exacerbation. She is doing much better. Air and gas exchange improved. Continue present treatment. I think she will be on pace to go home tomorrow. She is down to 1 L of O2. 2. Hypertension. Blood pressure has been controlled. 3. Chronic renal insufficiency. Creatinine appears to be stable. Her serum creatinine is 1.8 which I think is baseline for her. Continue present intake. 4. She is still getting Lasix 40 mg intravenous every 12 and still diuresing well. Her pedal edema has resolved. Increase her activity. 5. Review of her orders. She is on trazodone 50 mg at bedtime, tiotropium bromide inhaler 1 puff daily, nifedipine ER 30 mg a day, hydralazine to 50 mg by mouth every 8 hours, Lasix 40 mg intravenous every 12 hours, folic acid 1 mg twice a day, fluticasone 1 puff inhaler twice a day, Lovenox 40 mg subcutaneously every 24 hours, Multaq 400 mg twice a day, Lanoxin 125 mcg daily, vitamin B12 1000 mcg - I am giving her injections. I gave her 1 yesterday and I will give her 1 today and probably tomorrow. Aspirin 81 mg a day. cc: MD Olivia Hayes MD
[2016-10-27] MEDS: ADVAIR 250/50 DISKUS INH SCH ×2 (09:17→20:16)
[2016-10-27] MEDS: SPIRIVA INH SCH (09:17)
[2016-10-27] MEDS: LOVENOX SUBQ SCH (19:59)
[2016-10-28] MEDS: DUONEB (A & A) INH SCH ×6 (03:20→22:25)
[2016-10-28] MEDS: APRESOLINE PO SCH ×3 (05:50→21:19)
--- NOTE | 2016-10-28 07:07 | EKG Report ---
Test Performed on : 10/25/2016 6:01:52 PM Test Reason : change in heart rhythm Blood Pressure : / mmHG Vent. Rate : 073 BPM Atrial Rate : 086 BPM P-R Int : 000 ms QRS Dur : 104 ms QT Int : 338 ms P-R-T Axes : 075 -62 082 degrees QTc Int : 372 ms Sinus rhythm. with 2nd degree AV block (Mobitz I). Incomplete right bundle branch block Left anterior fascicular block Left ventricular hypertrophy with repolarization abnormality Abnormal ECG When compared with ECG of 07-AUG-2016 19:32, Sinus rhythm. is now with 2nd degree AV block (Mobitz I). Left anterior fascicular block is now present Incomplete right bundle branch block is now present Confirmed by Miquel QUINTEROS, Liban Boogie ([id number]) on 10/28/2016 7:13:21 AM
[2016-10-28 07:35] LABS: MANUAL DIFF NEEDED? NO
[2016-10-28 08:03] LABS: BASO% 0.5 % (0.0-0.8); EOS# 0.19 X1000 (0.0-0.7); EOS% 2.6 % (0.0-10.0); HEMATOCRIT 26.1 % (37.0-47.0); HEMOGLOBIN 8.3 g/dL (12.0-16.0); IMM GRAN# 0.02 X1000 (0.0-0.04); IMM GRAN% 0.3 % (0.0-0.5); LYMPH# 1.37 X1000 (1.2-3.4); LYMPH% 18.4 % (20.5-51.1); MCH 28.2 PG (27-31); MCHC 31.8 g/dL (33-37); MCV 88.8 FL (81-99); MONO# 0.76 X1000 (0.11-0.59); MONO% 10.2 % (1.7-9.3); MPV 9.5 FL (7.4-10.4); PLT 478 X1000 (130-400); RBC 2.94 XMIL (4.2-5.4)
[2016-10-28] MEDS: ADVAIR 250/50 DISKUS INH SCH ×2 (08:05→19:22)
[2016-10-28] MEDS: SPIRIVA INH SCH (08:05)
[2016-10-28] MEDS: ASPIRIN PO SCH (08:28)
[2016-10-28] MEDS: FOLIC ACID PO SCH ×2 (08:28→21:19)
[2016-10-28] MEDS: LANOXIN PO SCH (08:28)
[2016-10-28] MEDS: ADALAT CC PO SCH (08:29)
[2016-10-28] MEDS: CYANOCOBALAMIN IM SCH (08:29)
[2016-10-28] MEDS: MULTAQ PO SCH ×2 (08:29→21:20)
[2016-10-28] MEDS: LASIX IV SCH ×2 (08:29→21:20)
--- NOTE | 2016-10-28 14:54 | PROGRESS NOTE ---
DATE: 10/28/2016 Ms. Oconnor was admitted to [facility] with swbug-my-tepylqv respiratory failure with hypoxia, secondary to acute chronic obstructive pulmonary disease exacerbation and acute-on- chronic congestive heart failure secondary to diastolic dysfunction. Clinically, she is feeling better. She is breathing much more comfortably. She denies any PND, orthopnea, or increasing edema. She has not really been out of bed, and prior to admission, had significant shortness of breath with minimal activity. A chest x-ray from 10/27/2016 demonstrated bilateral pleural effusions and chronic white matter changes. OBJECTIVE: Vital Signs: She is maintaining O2 saturations of 91-93% on 2 L of O2. She remains in a normal sinus rhythm. Heart rate has been in the range of 61-86. Her blood pressure has generally been stable. This morning, her blood pressure was 148/61. Temperature 98.1 degrees, pulse 61, respirations 18, blood pressure 148/61. Cardiovascular: Regular rate and rhythm. Lungs: Crackles in the bases bilaterally. Abdomen: Soft, nontender, with active bowel sounds. Extremities: Trace ankle edema. ASSESSMENT AND PLAN: 1. Szywc-oy-acqhfmx respiratory failure with hypoxia, secondary to acute chronic obstructive pulmonary disease exacerbation and vaxcg-se-nhosxah congestive heart failure secondary to diastolic dysfunction. We will continue supplemental O2, DuoNeb nebulizer treatments, Spiriva and Advair. We will continue a salt and fluid restricted diet and will continue to diurese her aggressively with Lasix. We will begin to increase her activity. We will get her to sit up in a chair at least once per shift. We will consult Physical Therapy to increase physical activity to see how her shortness of breath will respond. I do believe that she will need chronic continuous home oxygen. 2. Hypertension. She has a history of labile hypertension secondary to renal artery stenosis. We will continue her current regimen of medications, as her blood pressure is generally stable. 3. Paroxysmal atrial fibrillation. She remains in normal sinus rhythm. We will continue Multaq 400 mg b.i.d., as well as digoxin for rate control. She is on an aspirin. cc: Olivia Massey MD
[2016-10-28] MEDS: LOVENOX SUBQ SCH (21:20)
[2016-10-29] MEDS: DUONEB (A & A) INH SCH ×6 (03:30→22:50)
[2016-10-29] MEDS: APRESOLINE PO SCH ×3 (05:44→20:19)
[2016-10-29] MEDS: ADALAT CC PO SCH (09:58)
[2016-10-29] MEDS: LANOXIN PO SCH (09:58)
[2016-10-29] MEDS: FOLIC ACID PO SCH ×2 (09:59→20:19)
[2016-10-29] MEDS: CYANOCOBALAMIN IM SCH (09:59)
[2016-10-29] MEDS: ASPIRIN PO SCH (09:59)
[2016-10-29] MEDS: MULTAQ PO SCH ×2 (09:59→20:19)
[2016-10-29] MEDS: LASIX IV SCH ×2 (10:08→20:19)
[2016-10-29] MEDS: SPIRIVA INH SCH (11:26)
[2016-10-29] MEDS: ADVAIR 250/50 DISKUS INH SCH ×2 (11:26→19:11)
--- NOTE | 2016-10-29 13:59 | Diag Imaging Result Doc PS360 ---
EXAM: CHEST-2 VIEWS HISTORY: COPD TECHNIQUE: COMPARISON: 10/27/2016 FINDINGS: The lungs are hyperexpanded. There is an increased AP diameter to the chest. Infiltrates are found bilaterally. These are slightly less dense in the mid left lung and may be slightly less dense in the right base. Cardiomegaly remains. Increased markings in the upper outer right lung believed to be fibrosis. Mild scoliosis. IMPRESSION: 1.Mild interval improvement in the bilateral infiltrates 2.Cardiomegaly 3.Emphysema Electronically signed by Philip Stovall 10/29/2016 1:57 PM
[2016-10-29] MEDS: LOVENOX SUBQ SCH (20:19)
[2016-10-30] MEDS: DUONEB (A & A) INH SCH ×3 (03:57→11:10)
[2016-10-30 05:49] LABS: CALCIUM 8.5 mg/dL (8.8-10.2); POTASSIUM 4.3 mmol/L (3.5-5.1)
[2016-10-30 05:52] LABS: HEMATOCRIT 27.1 % (37.0-47.0); HEMOGLOBIN 8.7 g/dL (12.0-16.0); MCH 29.4 PG (27-31); MCHC 32.1 g/dL (33-37); MCV 91.6 FL (81-99); RBC 2.96 XMIL (4.2-5.4)
[2016-10-30] MEDS: LASIX IV SCH (05:53)
[2016-10-30] MEDS: APRESOLINE PO SCH ×2 (05:53→13:43)
[2016-10-30] MEDS: SPIRIVA INH SCH (07:34)
[2016-10-30] MEDS: ADVAIR 250/50 DISKUS INH SCH (07:35)
[2016-10-30 07:57] VITALS: BP 172/63
[2016-10-30] MEDS: FOLIC ACID PO SCH (08:38)
[2016-10-30] MEDS: ADALAT CC PO SCH (08:38)
[2016-10-30] MEDS: ASPIRIN PO SCH (08:38)
[2016-10-30] MEDS: MULTAQ PO SCH (08:38)
[2016-10-30] MEDS: LANOXIN PO SCH (08:38)
[2016-10-30] MEDS: CYANOCOBALAMIN IM SCH (09:48)
--- NOTE | 2016-10-30 22:15 | DISCHARGE SUMMARY ---
ADMISSION DATE: 10/24/2016 DISCHARGE DATE: 10/30/2016 DISCHARGE DIAGNOSES: 1. Acute on chronic respiratory failure with hypoxia secondary to acute chronic obstructive pulmonary disease exacerbation. 2. Acute on chronic congestive heart failure secondary to diastolic dysfunction. 3. Labile hypertension secondary to renal artery stenosis. 4. Paroxysmal atrial fibrillation. 5. Chronic renal insufficiency. 6. NO CODE BLUE LEVEL I DISCHARGE INSTRUCTIONS: 1. Return to clinic in 1 week to see me, Dr. Robert Massey, in anticipation of a transition of care visit. 2. Activity as tolerated. 3. Healthy heart diet. 4. Medications: O2 at 2 L per nasal cannula, DuoNeb nebulizer treatments t.i.d. , vitamin B12 1000 mcg intramuscular monthly, folic acid 1 mg b.i.d., aspirin 81 mg daily, Advair 250/50 one puff b.i.d., Multaq 400 mg b.i.d., Apresoline 50 mg t.i.d., nifedipine ER 30 mg daily, Spiriva 1 inhalation daily, Lasix 40 mg daily and may take an additional Lasix if she gains 2 pounds in 24 hours, digoxin 125 mcg daily. PHYSICAL EXAMINATION: General: This is a chronically ill-appearing, 81-year- old lady in no apparent distress. Vital Signs: She is afebrile. Vital signs are stable. Cardiovascular: Regular rate and rhythm. Lungs: Clear. Abdomen: Soft, nontender with active bowel sounds. Extremities: Trace ankle edema. HOSPITAL COURSE: The patient was admitted to [facility] with acute on chronic respiratory failure with hypoxia secondary to acute chronic obstructive pulmonary disease exacerbation and acute on chronic congestive heart failure secondary to diastolic dysfunction. We continued Advair 250/50 one puff b.i.d., Spiriva one inhalation daily, supplemental O2, and added DuoNeb nebulizer treatments every 4 hours. We placed her on a salt and fluid restricted diet and aggressively diuresed her with Lasix.Her ECHO demonstrated mild to moderate mitral regurgitation. With aggressive pulmonary toilet and diuresis with lasix, her breathing improved. We consulted PT and she was able to walk 400 feet at the time of discharge. We will arrange for a home health referral. Having reached maximum hospital benefit, she was discharged in stable condition. cc: Olivia Massey MD [facility]ENTERBianca
[2016-10-31] MEDS ORDERED: LASIX PO SCH (09:00)
== END 2016-10-30 15:18 | disposition home health service (06) ==
LOC: ED 13:04 → 3S 16:30
PROVIDERS: ADMIT Internal Medicine; ATTEND Internal Medicine

== ENCOUNTER 2016-12-11 19:45 | Inpatient (IN) ==
[2016-12-11] MEDS ORDERED: LASIX IV ONE (22:59)
[2016-12-11 23:35] LABS: ALBUMIN 3.6 g/dL (3.5-5.0); CALCIUM 8.4 mg/dL (8.8-10.2); POTASSIUM 4.3 mmol/L (3.5-5.1); TOTAL BILIRUBIN 0.31 mg/dL (0.20-1.00); TOTAL PROTEIN 6.8 g/dL (6.3-8.3)
[2016-12-12] LABS: URINE MICRO REVIEW NEEDED? NO; URINE SOURCE CLEAN CATCH
[2016-12-12 00:06] LABS: BILIRUBIN URINE NEGATIVE (NEGATIVE); BLOOD URINE NEGATIVE (NEGATIVE); COLOR YELLOW; GLUCOSE URINE NEGATIVE (NEGATIVE); LEUKOCYTES URINE TRACE (NEGATIVE); NITRITE URINE NEGATIVE (NEGATIVE); PH URINE 6.5; PROTEIN URINE 300 mg/dL (NEGATIVE); SP GRAVITY URINE 1.012; TURBIDITY URINE HAZY (CLEAR); UROBILINOGEN URINE NORMAL (NORMAL)
[2016-12-12 00:08] LABS: UR EPITHELIAL CELLS <10 /HPF (<10); URINE BACTERIA 4+ /HPF; URINE CULTURE NEEDED? YES; URINE RBC <10 /HPF (<10)
--- NOTE | 2016-12-12 00:36 | PROVIDER DOCUMENTATION ---
This chart was entered by Sonya Low Scribe, acting as scribe for Jg Chin MD. HPI-Respiratory General - General Chief Complaint: Shortness of Breath Stated Complaint: COPD Time Seen by Provider: 12/11/16 20:32 Source: patient Allergies/Adverse Reactions: Patient Allergies Allergy/AdvReac Type Severity Reaction Status Date / Time levofloxacin [From Levaquin] Allergy Severe Unknown Verified 12/11/16 20:15 Home Medications: Home Medication List Medication Instructions Recorded Confirmed Last Taken Type Aspirin 81 mg PO DAILY 03/21/16 12/11/16 12/11/16 History Dronedarone [Multaq] 400 mg PO BID #60 tablet 08/09/16 12/11/16 12/11/16 Rx Fluticasone/[place] 250/50 INH 1 puff INH BID #1 inhaler 08/09/16 12/11/16 Rx [Advair 250/50 Diskus] Hydralazine [Apresoline] 50 mg PO Q8H #90 tablet 08/09/16 12/11/16 12/11/16 Rx Nifedipine E.r. [Adalat cc] 30 mg PO DAILY #30 tablet 08/09/16 12/11/16 Rx Tiotropium [place] Inhaler 1 puff INH RTDAILY #1 inhaler 08/09/16 12/11/1612/11 Rx [Spiriva] Albuterol 2.5MG/Ipratrop 0.5MG 3 ml INH RTTID #90 neb 10/30/16 12/11/16 Rx [Duoneb (A & A)] Digoxin [Lanoxin] 125 microgm PO DAILY #30 tablet 10/30/16 12/11/16 12/11/16 Rx Folic Acid 1 mg PO BID tablet 10/30/16 12/11/16 12/11/16 Rx Furosemide [Lasix] 40 mg PO DAILY #60 tablet 10/30/16 12/11/16 12/11/16 Rx Cyanocobalamin 1,000 microgm IM DIRECTED 12/11/16 12/11/16 Unknown History - History of Present Illness-Resp Nature of Presenting Problem: Pt is a 81 year old female who came to the ED with a cc of SOB and weight gain and doubling her lasix. Pt reports her SOB worsened today. Pt reports she has COPD. Pt reports after doubling her lasix she still hasn't lost any weight. Quality of Pain: reports: none Severity in ED: reports: mild Onset/Duration: reports: just prior to arrival Timing: reports: still present Exposure: reports: unknown cause Cough Quality/Degree: reports: no cough Episode Frequency: no prior episodes Associated Symptoms: reports: shortness of breath Similar Symptoms Previously?: Yes Recently seen or treated by another doctor?: No Review of Systems - Adult - REVIEW OF SYSTEMS - ADULT Constitutional: reports: weight gain. denies: chills, fever Eyes: reports: no symptoms reported Ears, Nose, Mouth & Throat: denies: ear pain, loose teeth Cardiovascular: reports: no symptoms reported Respiratory: reports: shortness of breath, wheezing. denies: cough, hemoptysis Gastrointestinal: denies: diarrhea, frequent heartburn, nausea, vomiting Genitourinary: denies: discharge, hematuria Musculoskeletal: reports: no symptoms reported Integumentary: reports: no symptoms reported Neurological: reports: no symptoms reported Psychiatric: reports: no symptoms reported Endocrine: reports: no symptoms reported Hematologic/Lymphatic: reports: no symptoms reported Allergic/Immunologic: reports: no symptoms reported All Other Systems: Reviewed and Negative Past History - Adult - PAST MEDICAL HISTORY-ADULT Review of Records: reports: Old Records Reviewed, Nursing Assessment Review, Medications Reviewed, Social history reviewed & non-contributory. Major Childhood Illnesses: reports: denies history Cardiovascular: reports: HTN Respiratory: reports: COPD Gastrointestinal: reports: denies history Obstetrical/Gynecological: reports: denies history Genitourinary: reports: kidney disease Musculoskeletal: reports: denies history Neurological: reports: denies history Endocrine/Immune: reports: denies history Other Conditions: reports: denies history - PRIOR SURGERIES/PROCEDURES Surgical/Procedure History: reports: other (L nephrectomy) - IMMUNIZATION STATUS Childhood Immunizations: See Nurse Assessment Flu Vaccine: See Nurse Assessment - FAMILY HISTORY Family History: reviewed, not pertinent Physical Exam-General - PHYSICAL EXAM-ADULT Initial Vital Signs Reviewed: Yes - CONSTITUTIONAL General Appearance: alert, no apparent distress - EYES Eyes: PERRL/EOMI, pink conjunctivae - HEAD, EARS, NOSE, MOUTH & THROAT HENMT: normocephalic/atraumatic, moist mucous membranes, normal ENT inspection - NECK Neck: C-spine tenderness - RESPIRATORY Respiratory: chest non-tender, decreased breath sounds, wheezing - CARDIOVASCULAR Cardiovascular: normal peripheral pulses, regular rate, rhythm, no edema - GASTROINTESTINAL (ABDOMEN) Abdominal Exam: normal bowel sounds, non tender, soft, other (liver is two finger tips below the right costal margin) - LYMPHATIC Lymphatic: no adenopathy - MUSCULOSKELETAL Back Exam: normal inspection, no CVA tenderness, no vertebral tenderness Extremity: normal range of motion, non-tender, pedal edema - SKIN Integumentary: normal color, normal turgor, warm/dry - NEUROLOGIC Neurologic: grossly normal, no motor/sensory deficits - PSYCHIATRIC Psych/Mental Status: normal mood/affect, normal thought content, normal thought process, oriented x 3 Progress - PLAN OF CARE/RESULTS Progress/Plan/Lab Results: Vital Signs - 8 hr 12/11/16 19:51 12/11/16 20:47 Temperature 98.0 F Pulse Rate 89 88 Respiratory Rate 20 19 Blood Pressure 163/56 170/69 O2 Sat by Pulse Oximetry 90 L 96 Laboratory Results - last 24 hr 12/11/16 12/11/16 12/11/16 20:10 20:10 23:05 Sodium 138 Potassium 4.3 Chloride 99 Carbon Dioxide 26 Anion Gap 13 BUN 34 H Creatinine 2.1 H Estimated GFR/1.73 m2 23 BUN/Creatinine Ratio 16 Glucose 99 Calculated Osmolality 283 Calcium 8.4 L Total Bilirubin 0.31 AST 25 ALT 15 Alkaline Phosphatase 95 [id number]-[id number] Pept 51263 H Total Protein 6.8 Albumin 3.6 Globulin 3.2 Albumin/Globulin Ratio 1.1 Urine Source CLEAN CATCH Urine Color YELLOW Urine Turbidity HAZY Urine pH 6.5 Ur Specific [place] 1.012 Urine Protein 300 A Ur Glucose (Stick) NEGATIVE Ur Ketones (Stick) NEGATIVE Urine Blood NEGATIVE Urine Nitrite NEGATIVE Urine Bilirubin NEGATIVE Urobilinogen Dipstick NORMAL Urine Leukocytes TRACE A Urine WBC (Auto) 10-20 A Urine RBC (Auto) <10 U Epithel Cells (Auto) <10 Urine Bacteria (Auto) 4+ Orders Category Date Time Status CHEST-PORTABLE [RAD] Stat Exams 12/11/16 22:46 Taken COMPREHENSIVE METABOLIC PANEL [CHEM] Stat Lab 12/11/16 20:10 Completed UA NIMS W/REFLEX CULT [URINALYSIS] Stat Lab 12/11/16 23:05 Completed URINE CULTURE [RM] Routine Lab 12/12/16 00:17 Received bnp [PRO B-NATRIURETIC PEPTIDE] Stat Lab 12/11/16 20:10 Completed Furosemide [Lasix] Med 12/11/16 22:59 Discontinued 40 mg IV NOW ONE EKG [EKG] Stat Ther 12/11/16 19:51 Ordered She remains SOB and with O2 sat 78% on RA (checked after walking to the bathroom CXRR confirms Pul edema and BNP is 12,000 Result Diagrams: 12/11/16 20:10 - EKG 1 Time of EKG reading by physician:: 19:53 EKG Read and Signed by:: Jg Chin EKG Interpretation (*Must complete 3 of following elements*): Abnormal Rate: 88 (possible left atrial enlargement; incomplete right bundle branch block ; left anterior fascicular block; left ventricular hypertrophy w/ repolarization abnormality; cannot rule out septal infarct) Rhythm: sinus rhythm with 1st degree AV block Departure - Departure Date of Disposition Decision: 12/12/16 Time of Disposition Decision: 00:35 DIAGNOSIS: Hypertensive heart and chronic kidney disease with heart failure and stage 1 through stage 4 chronic kidney disease, or unspecified chronic kidney disease Pulmonary edema Qualifiers: Chronicity: acute Qualified Code(s): J81.0 - Acute pulmonary edema Disposition: ADMITTED INPATIENT 09 Certified Medical Emergency: Emergent Condition: Fair Referrals and Follow-Ups: Vickie Massey MD [Primary Care Provider] - - Critical Care Note This patient required my direct & personal management of CC.: No This chart was documented by the indicated scribe, (Sonya Low Scribe) and accurately reflects the services I performed and decisions made by me, Jg Chin MD, as attested by the provider's signature.
[2016-12-12 01:08] LABS: MANUAL DIFF NEEDED? NO
[2016-12-12 01:16] LABS: BASO% 0.5 % (0.0-0.8); EOS# 0.06 X1000 (0.0-0.7); EOS% 0.9 % (0.0-10.0); HEMATOCRIT 26.9 % (37.0-47.0); HEMOGLOBIN 8.7 g/dL (12.0-16.0); LYMPH# 1.11 X1000 (1.2-3.4); LYMPH% 17.4 % (20.5-51.1); MCH 27.3 PG (27-31); MCHC 32.3 g/dL (33-37); MCV 84.3 FL (81-99); MONO# 0.64 X1000 (0.11-0.59); MPV 9.2 FL (7.4-10.4); NEUT% 71.2 % (42.2-75.2); PLT 530 X1000 (130-400); RBC 3.19 XMIL (4.2-5.4)
[2016-12-12 01:20] LABS: INR 1.01; PROTIME 10.6 Seconds (9.2-11.7)
--- NOTE | 2016-12-12 03:09 | HISTORY AND PHYSICAL ---
REASON FOR ADMISSION: A 1-week history of lower extremity swelling and 3-day history of shortness of breath. HISTORY OF PRESENT ILLNESS: Ms. Amna Oconnor is an 81-year-old lady with a past medical history of COPD, with home O2. She also has a history of CKD, hypertension. She comes in today. She is a resident of an assisted care living facility and informs me that she for the past one week she has been having progressive lower extremity swelling, without any accompanying abdominal distention or swelling. She admits to having occasional cough, but no fever or chills. Four days later, she started complaining of increased shortness of breath with mild activity and worsening orthopnea, but no PND. She denies any chest pain or palpitations or lightheadedness with this. She denies any color discoloration of her extremities or pain in her calf muscles or redness. She denies any easy satiety. Came in today primarily because the dyspnea she has been experiencing started occurring at rest. The patient also complains of a 4 pound weight gain over the last 3 days. She has had no change in her home medications. No change in her salt intake. REVIEW OF SYSTEMS: Twelve system review was done. She denies any genitourinary, gastrointestinal, neurological, musculoskeletal, dermatological complaints. ALLERGIES: Levaquin. HOME MEDICATIONS: Aspirin 81 mg daily, digoxin 125 mcg daily, Multaq 400 mg b.i.d., Advair 250/50 one puff b.i.d., Lasix 40 mg daily, Apresoline 50 mg t.i.d., nifedipine 30 mg daily, Spiriva 1 puff daily. Patient also takes vitamin B12 and folic acid supplements. The patient states that she was supposed to take an extra Lasix if she gains 2 pounds in 24 hours, but she says she never gained up to 2 pounds, but only gained a pound at the time and did not know what to do. PAST SURGICAL HISTORY: She has had breast biopsy, cataract surgery, hysterectomy, renal artery stent, placed and said she has had a partial resection of her right kidney by Dr. Ware. FAMILY HISTORY: No heart disease or cancer in first-degree relatives. There is a positive history of heart disease in her parents. SOCIAL HISTORY: Does not smoke, drink, or use illicit drugs. Quit smoking in 1987. A resident of an [facility]. LABORATORY WORK: EKG shows normal sinus rhythm, with first-degree AV block, LVH, left axis deviation, incomplete right bundle branch block. Chest x-ray showed increased vascular markings bilaterally. White count 6000, hemoglobin and hematocrit 8 and 27, platelets 530,000, with normal differential. BUN 34, creatinine 2.1. ProBNP 1360. PT/PTT is normal. WBC 10-20, with 4+ bacteriuria, 300 protein. PHYSICAL EXAMINATION: GENERAL: Frail, thin, elderly woman, who is in very mild distress. She is alert and oriented x3. Normal mood and affect. VITAL SIGNS: Her blood pressure is 184/89, heart rate 83, temperature 98, respirations 23, 98% on 2 L. HEENT: Head is normocephalic. Eyes PERRLA, EOMI. She is anicteric, not pale. ENT and oropharyngeal exam is grossly normal. NECK: Shows positive hepatojugular reflux. No bruit. No thyromegaly. CHEST: Shows crepitations up to detention up the lung olson, with no wheezes, but decreased entry in the bases. CARDIOVASCULAR: First and second heart sounds heard. No gallops. A 3/6 ejection systolic murmur heard at the apex. Rhythm is regular, with occasional skipped beats. ABDOMEN: Slightly protuberant, soft. No tenderness. No mass or organomegaly. Bowel sounds are hyperactive. RECTAL: Deferred at this time. EXTREMITIES: Two to 3+ pitting edema up to the knees, with distal pulses in all extremities symmetrical, with good volume. No clubbing or peripheral cyanosis. NEUROLOGICAL: No focal deficits. SKIN: Intact. No breakdown, lesions, or erythema. MUSCULOSKELETAL: Grossly normal, except for proximal muscle wasting. ASSESSMENT: 1. Acute diastolic heart failure. 2. Hypertensive heart and kidney disease. 3. Chronic kidney disease, stage 3. 4. Chronic obstructive pulmonary disease, with severe pulmonary hypertension, home O2-dependent. 5. Umqnl-gq-jgdctrq respiratory failure. 6. Anemia of chronic inflammation. 7. Asymptomatic bacteriuria. PLAN: At this time, will continue with IV pushes of Lasix to achieve adequate diuresis, and patient may probably have her final home dose of Lasix modified at discharge. The patient's last echocardiogram was done in October, with ejection fraction of 69%. No rationale for repeating at this point in time. I will consider adding on low-dose beta blockade, which has been shown to be beneficial, ironically, even in mortality and morbidity in a patient with chronic obstructive pulmonary disease. Other blood pressure medications may be also slowly increased if desired by Dr. Jones. BMP and chest films will be ordered daily. Patient is anemic. We will check iron studies. She is iron deficient, she may benefit from intravenous iron, which has been shown to have some benefit in patients with heart failure. No need to treat asymptomatic bacteriuria, since she denies any genitourinary symptoms, and as there is no benefit in treating asymptomatic bacteriuria. We will continue with nebulizer treatments with DuoNeb, and withhold Spiriva since the patient already has anticholinergic medication in DuoNeb. Thyroid function tests and digoxin levels are pending at this time, and will need to be followed. cc: MD Abner Danielle MD
[2016-12-12] MEDS ORDERED: TYLENOL PO PRN (05:14)
[2016-12-12] MEDS: LOVENOX SUBQ SCH (05:54)
[2016-12-12] MEDS: NITROGLYCERIN TOP SCH ×3 (05:54→19:18)
[2016-12-12] MEDS: APRESOLINE PO SCH ×4 (05:54→21:55)
[2016-12-12 06:21] LABS: DIGOXIN 2.4 ng/mL (0.9-2.0); MAGNESIUM 2.2 mg/dL (1.5-2.7)
--- NOTE | 2016-12-12 06:30 | EKG Report ---
Test Performed on : 12/11/2016 7:53:49 PM Test Reason : SOB Blood Pressure : / mmHG Vent. Rate : 088 BPM Atrial Rate : 088 BPM P-R Int : 212 ms QRS Dur : 112 ms QT Int : 340 ms P-R-T Axes : 070 -59 100 degrees QTc Int : 411 ms Sinus rhythm. with 1st degree AV block. Possible Left atrial enlargement Incomplete right bundle branch block Left anterior fascicular block Left ventricular hypertrophy with repolarization abnormality Cannot rule out Septal infarct , age undetermined Abnormal ECG When compared with ECG of 25-OCT-2016 18:01, Sinus rhythm. is no longer with 2nd degree AV block (Mobitz I). Minimal criteria for Septal infarct are now present Unconfirmed Result
--- NOTE | 2016-12-12 07:37 | Diag Imaging Result Doc PS360 ---
EXAM: CHEST-PORTABLE HISTORY: chf TECHNIQUE: AP portable at 2315 COMMENT: There are coarse opacities throughout both lungs with areas of pleural thickening particularly in the lateral upper lobe on the right. There is cardiomegaly. Much of the coarse parenchymal opacities were were present at the time the previous study of 01/23/2015. This is presumably due to pulmonary fibrosis. There may be some additional interstitial pulmonary edema superimposed on this particularly in the lower lung olson. 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 Electronically signed by Trey Stanford 12/12/2016 7:35 AM
[2016-12-12] MEDS: FOLIC ACID PO SCH ×3 (08:23→21:55)
[2016-12-12] MEDS: CARDIZEM PO SCH ×3 (08:23→17:45)
[2016-12-12] MEDS: LASIX IV SCH ×2 (08:23→19:18)
[2016-12-12] MEDS: MULTAQ PO SCH ×2 (08:24→20:22)
[2016-12-12] MEDS: ASPIRIN PO SCH (08:24)
[2016-12-12] MEDS ORDERED: ADALAT CC PO SCH (09:00)
[2016-12-12] MEDS ORDERED: LANOXIN PO SCH (09:00)
[2016-12-12] MEDS ORDERED: COREG PO SCH (09:00)
[2016-12-12] MEDS: DUONEB (A & A) INH SCH ×3 (09:41→19:31)
[2016-12-12] MEDS: ADVAIR 250/50 DISKUS INH SCH ×2 (09:41→19:32)
[2016-12-12] MEDS: SPIRIVA INH SCH (09:53)
[2016-12-12] MEDS ORDERED: AYR NASAL SPRAY NAS PRN (10:38)
--- NOTE | 2016-12-12 11:56 | PROGRESS NOTE ---
DATE: 12/12/2016 SUBJECTIVE: Mrs. Amna Oconnor was admitted to [facility] with [id number] congestive heart failure secondary to diastolic dysfunction. Her chest x-ray demonstrated increased interstitial edema and her ProBNP was 10,360. She has been placed on a salt and fluid restricted diet and diuresed with Lasix. She is breathing more comfortably this morning. Her O2 saturations are ranging from 96%-98% on 3 L of O2. Blood pressure is fluctuating. Systolic blood pressures range from 179-184 whereas her diastolic blood pressures are in the 80s. She denies any chest pain, palpitations, or anginal equivalents. OBJECTIVE: She is afebrile. Pulse 77, respirations 19, BP 181/87. CV regular rate and rhythm with a 3/6 systolic ejection murmur at the left sternal margin. Lungs: Crackles in the bases bilaterally. Abdomen soft, nontender, with active bowel sounds. Extremities: 2+ pitting edema in the lower extremities bilaterally. ASSESSMENT AND PLAN: 1. Chronic respiratory failure with hypoxia secondary to [id number] congestive heart failure secondary to diastolic dysfunction. We will continue a salt and fluid restricted diet and diurese her with Lasix 40 mg IV q.12 hours. We will follow strict I's and O's. She has not been able to tolerate beta blockers in the past because of exacerbations of her underlying COPD. I am going to begin low dose diltiazem to hopefully improve cardiac compliance. 2. Hypertension. She has a history of labile hypertension secondary to renal artery stenosis. We will continue Apresoline and add diltiazem 30 mg t.i.d. 3. Paroxysmal atrial fibrillation. She remains in normal sinus rhythm. We will continue Multaq 400 mg b.i.d. and aspirin 81 mg daily. I am going to hold the digoxin as her digoxin level was 2.4. 4. Chronic chronic obstructive pulmonary disease. We will continue DuoNeb nebulizer treatments q.6 hours, Advair 250/50 one puff b.i.d. as well as Spiriva. 5. Chronic renal failure. Her creatinine ranges from 1.8-1.9. We will monitor her kidney function while we actively diurese the patient. cc: Olivia Massey MD
--- NOTE | 2016-12-12 16:26 | CONSULTATION ---
DATE OF CONSULTATION: 12/12/2016 CARDIOLOGY CONSULT: IMPRESSION: 1. Acute on chronic congestive heart failure, multifactorial, and related to left ventricular diastolic dysfunction, probable right heart failure and cor pulmonale, and chronic renal dysfunction. 2. Hypertensive cardiovascular disease. 3. Chronic kidney disease with creatinine 2.1, near baseline. 4. Paroxysmal atrial fibrillation. 5. History of atherosclerotic peripheral vascular disease with renal artery stenosis treated with renal artery stent. RECOMMENDATIONS: 1. Diuresis as you are doing. 2. Agree with transition from amlodipine to Cardizem for both blood pressure and rate control. 3. Paroxysmal atrial fibrillation. 4. Given renal dysfunction and less efficacious nature of digoxin for paroxysmal atrial fibrillation, would discontinue digoxin. 5. Conservative cardiovascular management overall. HISTORY: This 81-year-old, white female, with past history of congestive heart failure, left ventricular diastolic dysfunction, hypertensive cardiovascular disease, severe COPD requiring chronic home oxygen, moderate pulmonary hypertension, chronic kidney disease, and paroxysmal atrial fibrillation was admitted through the emergency room for further management of exacerbation of congestive heart failure. Over the past week she has had increasing exertional dyspnea as well as peripheral swelling. She has gained perhaps 3 or 4 pounds. This developed despite her usual diuretic regimen. Her appetite remained good. She denies orthopnea. There has been no angina. She makes a reasonably good effort to restrict her salt intake. PAST MEDICAL HISTORY: 1. Congestive heart failure multifactorial. 2. 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 3. Chronic kidney disease with baseline creatinine around 2.0. 4. Severe COPD requiring home oxygen. 5. Paroxysmal atrial fibrillation. 6. Mild atherosclerotic coronary disease. 7. Renal artery stenosis treated with previous renal artery stent. 8. Abdominal aortic aneurysm. 9. Moderate mitral regurgitation and tricuspid regurgitation. 10. Moderate pulmonary hypertension. PAST SURGICAL HISTORY: Includes cataract procedure, hysterectomy, renal artery stent, right kidney partial resection, tonsillectomy. ALLERGIES: She is allergic or intolerant to levofloxacin. MEDICATIONS: Prior to admission as listed. SOCIAL HISTORY: She no longer smokes. She is . She lives in assisted living. She does not use alcohol. FAMILY HISTORY: Negative for premature coronary disease. REVIEW OF SYSTEMS: Pulmonary: Noteworthy for exertional dyspnea. She has had some cough productive of yellow sputum. There has been no orthopnea. Gastrointestinal: Negative. Constitutional: Negative. Remainder of review of systems negative/noncontributory with 14 total systems reviewed. PHYSICAL EXAMINATION: General Appearance: A thin, elderly female, in no distress on supplemental oxygen per nasal cannula. Vital Signs: Blood pressure 185/80, heart rate 67 and regular with ECG monitor showing sinus rhythm. HEENT Exam: Extraocular movements intact. Mucous membranes are moist. Neck: Supple with pulsatile jugular distention suggesting moderately elevated central venous pressure. There are no carotid bruits. Chest: Auscultation of chest reveals diminished breath sounds diffusely. Bibasilar inspiratory crackles present. Cardiac Exam: Reveals a regular rate and rhythm with a grade 2/6 systolic murmur at the left ventricular apex. Gallop could not be appreciated. Abdomen: Soft, nontender. Extremities: Demonstrate moderate pretibial edema. Neurologic Exam: Reveals her to be alert, fully oriented. Speech is fluent. She moves all 4 extremities equally well. Skin: Warm and dry. Psychiatric Exam: Reveals her mood to be appropriate. DIAGNOSTIC DATA: ECG demonstrates sinus rhythm, first-degree AV block and left anterior fascicular block. Digoxin level 2.4. Troponin 0.028. TSH 0.04. cc: MD Olivia Contreras MD
[2016-12-13] MEDS: DUONEB (A & A) INH SCH ×4 (03:28→22:55)
[2016-12-13 04:45] LABS: MANUAL DIFF NEEDED? NO
[2016-12-13 04:51] LABS: BASO% 0.5 % (0.0-0.8); EOS# 0.08 X1000 (0.0-0.7); EOS% 1.4 % (0.0-10.0); HEMOGLOBIN 7.8 g/dL (12.0-16.0); LYMPH% 27.3 % (20.5-51.1); MCH 27.4 PG (27-31); MCHC 32.5 g/dL (33-37); MCV 84.2 FL (81-99); MONO# 0.52 X1000 (0.11-0.59); MONO% 8.9 % (1.7-9.3); MPV 8.3 FL (7.4-10.4); NEUT% 61.9 % (42.2-75.2); PLT 429 X1000 (130-400); RBC 2.85 XMIL (4.2-5.4)
[2016-12-13 05:10] LABS: CALCIUM 8.3 mg/dL (8.8-10.2); POTASSIUM 4.4 mmol/L (3.5-5.1)
[2016-12-13] MEDS: APRESOLINE PO SCH ×3 (06:16→21:14)
[2016-12-13] MEDS: LOVENOX SUBQ SCH (06:16)
[2016-12-13] MEDS: LASIX IV SCH (08:48)
[2016-12-13] MEDS ORDERED: LASIX IV SCH (09:00)
[2016-12-13] MEDS ORDERED: IMDUR PO SCH (09:00)
[2016-12-13] MEDS: ASPIRIN PO SCH (09:05)
[2016-12-13] MEDS: FOLIC ACID PO SCH ×2 (09:05→21:14)
[2016-12-13] MEDS: SEPTRA DS PO SCH ×2 (09:05→21:14)
[2016-12-13] MEDS: CARDIZEM PO SCH ×3 (09:05→16:19)
[2016-12-13] MEDS: MULTAQ PO SCH ×2 (09:06→21:14)
[2016-12-13] MEDS: SPIRIVA INH SCH (09:11)
[2016-12-13] MEDS: ADVAIR 250/50 DISKUS INH SCH ×2 (09:11→19:55)
--- NOTE | 2016-12-13 10:05 | Diag Imaging Result Doc PS360 ---
EXAM: CHEST-2 VIEWS HISTORY: CHF TECHNIQUE: PA and lateral chest COMMENT: There are coarse pulmonary and pleural opacities bilaterally consistent with fibrosis. The inspiration is less optimal than on 08/02/2016. There is a bulla anteriorly in the right middle lobe. Compared to 01/23/2015 there is slightly more pleural thickening seen in the right costophrenic angle and increased opacity in the right lower lobe which may be related to differences in inspiration. IMPRESSION: Pulmonary and pleural fibrosis, questionable atelectasis or pneumonia right lower lobe. Electronically signed by Trey Stanford 12/13/2016 10:03 AM
[2016-12-13] MEDS: FLONASE NAS SCH ×2 (10:15→21:14)
--- NOTE | 2016-12-13 10:25 | PROGRESS NOTE ---
DATE: 12/13/2016 SUBJECTIVE: Ms. Oconnor was admitted to [facility] with acute on chronic congestive heart failure secondary to diastolic dysfunction. We started her on a salt and fluid restricted diet and have diuresed her aggressively. I added diltiazem yesterday to improve cardiac compliance. Urine output has been excellent. She has put out nearly 1500 mL of urine output since admission. She is breathing much more comfortably. O2 saturations are ranging from 97% to 99% on 2 L of O2. She has a history of paroxysmal atrial fibrillation. She remains in normal sinus rhythm. Heart rate is ranging from 63 to 68 on the diltiazem. She is with complaint of dysuria, increased urinary frequency, but denies any low back pain, nausea, vomiting, fever or chills. Urine cultures are growing out gram-negative rods. She has a history of allergic rhinitis. She is with complaint of nasal congestion, and rhinorrhea with clear nasal discharge. OBJECTIVE: Vital signs: Temperature 97.8 degrees, pulse 68, respirations 16, BP 166/66. CV: Regular rate and rhythm. Lungs: Distant breath sounds with increased period of expiration. Abdomen: Soft, nontender, with active bowel sounds. Extremities: Trace ankle edema. LABORATORY STUDIES: Various laboratory studies were obtained. A CBC demonstrated a white count of 5.8, hemoglobin 7.8, hematocrit 24.0 and a platelet count of 429,000. Electrolytes demonstrated the following: Sodium 137, potassium 4.4, chloride 97, BUN 38, creatinine 2.1 and glucose 98. ASSESSMENT AND PLAN: 1. Acute on chronic congestive heart failure secondary to diastolic dysfunction. She has chronic respiratory failure with hypoxia. We will continue supplemental oxygen at two liters per nasal cannula. We will continue a salt and fluid restricted diet. I am going to back down on the Lasix to 40 mg intravenous daily. I will titrate upward on the diltiazem as tolerated to improve cardiac compliance. I will gradually increase her activity. 2. Renal artery stenosis. Her blood pressure fluctuates. I would like to try to keep her blood pressure below 160/90 given the renal artery stenosis, JOSIAH inhibitors and ARB's are contraindicated. 3. Urinary tract infection. I will treat her with Bactrim DS one oral twice daily for 10 days. cc: Olivia Massey MD
--- NOTE | 2016-12-13 18:51 | PROGRESS NOTE ---
DATE: 12/13/2016 SUBJECTIVE: Patient continues without dyspnea on supplemental oxygen per nasal cannula. She has no chest pain. OBJECTIVE: Vital Signs: Blood pressure 140/50, heart rate 58 and regular with ECG monitor showing sinus rhythm. Oxygen saturation 96% on nasal cannula, oxygen at 2 L/minute. Neck: Jugular venous distention is evident consistent with elevated central venous pressure. Chest: Auscultation of chest reveals bibasilar inspiratory crackles which sound chronic in nature. Cardiac Examination: Reveals a regular rate and rhythm without appreciable gallop. Extremities: Demonstrate mild pretibial edema which is improving. There is some chronic stasis changes in the distal lower extremities. LABORATORY DATA: Hematocrit of 24, MCV 84.2, BUN 38, creatinine 2.1. IMPRESSION: 1. Acute on chronic congestive heart failure, multifactorial. However, clinical findings to support predominance of right heart failure related to with some possible degree of left ventricular diastolic dysfunction. Chronic renal dysfunction also playing a role. 2. Paroxysmal atrial fibrillation. 3. Hypertensive cardiovascular disease. 4. Chronic kidney disease with baseline creatinine 2.1. 5. History of atherosclerotic peripheral vascular disease and previous renal artery stent. RECOMMENDATIONS: 1. Continue diuresis. She appears to be at least 3-5 pounds above euvolemic weight. I also suspect that her euvolemic weight has been in decline. 2. Continue diltiazem and adjust for blood pressure management. 3. Conservative cardiovascular care overall. Continue Multaq to suppress paroxysmal atrial fibrillation. cc: MD Olivia Contreras MD
[2016-12-14] MEDS: DUONEB (A & A) INH SCH ×4 (03:05→19:51)
[2016-12-14] MEDS: LOVENOX SUBQ SCH (05:49)
[2016-12-14] MEDS: APRESOLINE PO SCH ×4 (05:49→21:12)
[2016-12-14] MEDS: CARDIZEM PO SCH ×3 (08:32→19:54)
[2016-12-14] MEDS: SEPTRA DS PO SCH ×3 (08:32→21:13)
[2016-12-14] MEDS: MULTAQ PO SCH ×3 (08:32→21:12)
[2016-12-14] MEDS: ASPIRIN PO SCH (08:33)
[2016-12-14] MEDS: FOLIC ACID PO SCH ×3 (08:33→21:12)
[2016-12-14] MEDS: FLONASE NAS SCH ×3 (08:34→21:12)
[2016-12-14] MEDS: LASIX IV SCH ×2 (08:34→19:53)
[2016-12-14 08:40] LABS: HEMATOCRIT 26.7 % (37.0-47.0); HEMOGLOBIN 8.6 g/dL (12.0-16.0); MCH 27.7 PG (27-31); MCHC 32.2 g/dL (33-37); MCV 85.9 FL (81-99); MPV 8.7 FL (7.4-10.4); RBC 3.11 XMIL (4.2-5.4)
[2016-12-14] MEDS: ADVAIR 250/50 DISKUS INH SCH ×2 (08:49→19:50)
[2016-12-14] MEDS: SPIRIVA INH SCH (08:49)
--- NOTE | 2016-12-14 11:04 | PROGRESS NOTE ---
DATE: 12/14/2016 SUBJECTIVE: Mrs. Amna Oconnor was admitted to [facility] with chronic respiratory failure with hypoxia secondary to [id number] congestive heart failure. We have continued her on a salt and fluid restricted diet and diuresed her aggressively with Lasix. We had backed down on the Lasix to 40 mg IV daily yesterday. She has a negative input and output of 1,745 mL since admission. She is breathing more comfortably. She still has dyspnea when she walks to the bathroom or transfers out of her bed in order to get up and walk to a chair. She is maintaining O2 saturations of 96%-97% on 2 L. Her chest x-ray yesterday demonstrated pulmonary and pleural fibrosis. She reported that she had more dyspnea last night and had to sit up in order to breathe comfortably. She denied any chest pain, palpitations, or anginal equivalents. Her blood pressure is still fluctuating. She does have known renal artery stenosis. OBJECTIVE: Vital Signs: Temperature 97.9 degrees, pulse 71, respirations 18, BP 175/65. CV: Regular rate and rhythm. Lungs: Faint crackles in the bases bilaterally with distant breath sounds and increased period of expiration. Abdomen soft, nontender, with active bowel sounds. Extremities: Trace ankle edema. ASSESSMENT AND PLAN: 1. Chronic respiratory failure with hypoxia secondary to [id number] congestive heart failure secondary to diastolic dysfunction. We will continue a salt and fluid restricted diet, and I will increase the Lasix to 40 mg IV q.12 hours. We will increase the diltiazem to 30 mg q.6 hours in order to improve cardiac compliance. I will recheck a BMP today. 2. Secondary hypertension secondary to renal artery stenosis. I would like to keep her systolic blood pressures in the 150s and 160s if possible. We will increase the diltiazem to 30 mg q.6 hours given her history of renal artery stenosis. JOSIAH inhibitors and ARBs are contraindicated. 3. Chronic renal failure complicated by anemia of chronic disease. Her baseline creatinine ranges from 1.8 to 2.1. Her baseline hemoglobin hematocrit are in the range of 9.1 and 27. Her hemoglobin and hematocrit this morning were 8.6 and 26.7. I do not believe a transfusion is indicated at this time. I am going to check an erythropoietin level to see if she would benefit from Procrit injections in order to keep the hemoglobin above 10 which certainly would help improve oxygenation in the setting of severe chronic obstructive pulmonary disease. 4. Urinary tract infection. Urine cultures grew out Escherichia coli. We will continue Bactrim DS 1 p.o. b.i.d. cc: Olivia Massey MD
--- NOTE | 2016-12-14 12:44 | PROGRESS NOTE ---
DATE: 12/14/2016 SUBJECTIVE: She reports she is feeling much better. She is less short of breath and reports improvement in her lower extremity edema. No palpitations. OBJECTIVE: Vital signs: Afebrile. Heart rate is 68, blood pressure 161/51. Intake and Output: Her I's and O's for this hospitalization are -1.3 L. General: In no acute distress. Cardiovascular: She is in a regular rate and rhythm, with trace if lower extremity edema. Telemetry currently shows sinus. Chest: Clear bilaterally. No increased work of breathing. Abdomen: Soft, nontender, and nondistended. She has no obvious organomegaly. PERTINENT DATA: White count is 6, hematocrit 26.7, and platelet count is 453,000. She has no chemistry data from today. ASSESSMENT: 1. Diastolic heart failure. 2. Atrial fibrillation. PLAN: I would recommend continued diuresis. The patient seems to be doing better clinically and she seems to have a reasonable rate of diuresis thus far. I will recheck a proBNP in the morning. cc: MD Olivia Anderson MD
[2016-12-15] MEDS: CARDIZEM PO SCH ×4 (03:26→20:12)
[2016-12-15] MEDS: DUONEB (A & A) INH SCH ×5 (03:45→19:16)
[2016-12-15 05:34] LABS: CALCIUM 8.5 mg/dL (8.8-10.2); POTASSIUM 4.2 mmol/L (3.5-5.1)
[2016-12-15] MEDS: LOVENOX SUBQ SCH (06:04)
[2016-12-15] MEDS: APRESOLINE PO SCH ×3 (06:04→20:12)
[2016-12-15] MEDS: FOLIC ACID PO SCH ×2 (08:26→20:12)
[2016-12-15] MEDS: MULTAQ PO SCH (08:26)
[2016-12-15] MEDS: SEPTRA DS PO SCH ×2 (08:26→20:12)
[2016-12-15] MEDS: ASPIRIN PO SCH (08:26)
[2016-12-15] MEDS: LASIX IV SCH (08:27)
[2016-12-15] MEDS: FLONASE NAS SCH ×2 (08:28→20:12)
--- NOTE | 2016-12-15 08:44 | PROGRESS NOTE ---
DATE: 12/15/2016 SUBJECTIVE: Ms. Oconnor was admitted to [facility] with acute on chronic congestive heart failure secondary to diastolic dysfunction. Her proBNP has dropped from 10,900 to 7200. She is breathing more comfortably but still has dyspnea with ambulating to the bathroom. She denies any PND or orthopnea. We have diuresed her pretty aggressively. Her Is and Os are negative by 3200 mL over the past several days. Unfortunately, her BUN and creatinine have deteriorated. Creatinine has jumped from 2.1 to 3. She remains in normal sinus rhythm. Blood pressure is still in the 160s systolically. She is maintaining O2 saturations of 93-96% on 2 L of O2 per nasal cannula. PHYSICAL EXAMINATION: Vital Signs: Temperature 97.6 degrees, pulse 68, respirations 18, BP 166/59. CV: Regular rate and rhythm. Lungs: Distant breath sounds with increased period of expiration. Abdomen: Soft, nontender, with active bowel sounds. Extremities: Trace ankle edema. ASSESSMENT AND PLAN: 1. Acute on chronic congestive heart failure secondary to diastolic dysfunction. We will continue supplemental O2, diltiazem 30 mg every 6 hours to increase cardiac compliance but I will back down on the Lasix to 40 mg daily as her creatinine has bumped from 2.1 to 3. 2. Acute on chronic renal failure secondary to volume depletion. Unfortunately, she has significant congestive heart failure and we have had to diurese her aggressively in order for her to maintain good oxygenation. The diuresis has irritated her kidneys. Creatinine has jumped from 2.1 to 3. I am going to back down on the Lasix to 40 mg intravenous daily. I really do not want to give her fluids at this time. I am concerned that ultimately, in order to regulate her fluid status more efficiently in the setting of congestive heart failure and chronic renal failure, that she will need dialysis at some point in time. cc: Olivia Massey MD
[2016-12-15] MEDS: SPIRIVA INH SCH (09:31)
[2016-12-15] MEDS: ADVAIR 250/50 DISKUS INH SCH ×2 (09:31→19:15)
--- NOTE | 2016-12-15 14:31 | PROGRESS NOTE ---
DATE: 12/15/2016 SUBJECTIVE: She continues to feel better. She is sleeping peacefully. She is tolerating oral intake. She has no orthopnea. PHYSICAL EXAMINATION: Vital signs: Afebrile. Heart rate is 65, blood pressure 113/45. Her I's and O 's for the course of the hospitalization have been -3.8 L. General: No acute distress. Cardiovascular: She sounds to be in a regular rate and rhythm. No murmurs. She has trace to 1+ bilateral lower extremity edema. Chest: Clear bilaterally. No increased work of breathing. Abdomen: Soft, nontender. PERTINENT DATA: Her sodium is 134, potassium 4.2, BUN 49, creatinine 3. ProBNP is 7395. ASSESSMENT: 1. Heart failure. 2. Acute kidney injury. PLAN: Patient's creatinine has bumped from 2.1 to 3.0. I would recommend discontinuation of the Lasix as well as discontinuation of the dronedarone. If her renal function improves we could consider reinitiation of diuresis. Presently, I believe she is likely intravascularly volume depleted although total body water she is hypervolemic. Her proBNP currently is likely a mixed representation of CHF as well as renal insufficiency. Her digoxin has been discontinued. cc: MD Olivia Anderson MD MTDD
[2016-12-16] MEDS: CARDIZEM PO SCH ×4 (02:46→20:09)
[2016-12-16] MEDS: DUONEB (A & A) INH SCH ×5 (03:53→19:26)
[2016-12-16] MEDS: APRESOLINE PO SCH ×3 (05:12→20:09)
[2016-12-16] MEDS: LOVENOX SUBQ SCH (05:12)
[2016-12-16 05:34] LABS: CALCIUM 8.7 mg/dL (8.8-10.2); POTASSIUM 4.7 mmol/L (3.5-5.1)
[2016-12-16] MEDS ORDERED: NS 1,000 ML IV SCH (08:51)
[2016-12-16] MEDS ORDERED: LASIX IV SCH (09:00)
[2016-12-16] MEDS: ASPIRIN PO SCH (09:06)
[2016-12-16] MEDS: SEPTRA DS PO SCH (09:06)
[2016-12-16] MEDS: FOLIC ACID PO SCH ×2 (09:06→20:09)
[2016-12-16] MEDS: FLONASE NAS SCH ×2 (09:06→20:09)
--- NOTE | 2016-12-16 10:02 | PROGRESS NOTE ---
DATE: 12/16/2016 SUBJECTIVE: Ms. Oconnor was admitted to [facility] with acute on chronic respiratory failure secondary to diastolic dysfunction. We have aggressively diuresed her and she is negative by 3500 mL since admission. She is breathing more comfortably and is maintaining O2 saturations of 96 to 98% on 2 L of O2. Unfortunately with aggressive diuresis her renal function has deteriorated. She has chronic renal insufficiency. Her creatinine has jumped from 2.1 to 3.1. She is still voiding. OBJECTIVE: Vital signs: Temperature 98.2 degrees, pulse 70, respirations 20, BP 166/57. CV: Regular rate and rhythm. Lungs: Distant breath sounds with increased period of expiration. Abdomen: Soft, nontender, with active bowel sounds. ASSESSMENT AND PLAN: 1. Acute on chronic congestive heart failure secondary to diastolic dysfunction. We will continue the salt and fluid restricted diet. Because of the worsening renal insufficiency, I am going to hold the Multaq and Lasix. We will continue supplemental O2 and oral diltiazem to improve cardiac compliance. 2. Acute on chronic renal failure. She has intravascularly dry because of the heart failure. Unfortunately as we diurese her to improve her lung function and heart function, her renal function deteriorates. I am going to cautiously give her a liter of fluid at 60 mL per hour and recheck a BMP in the morning. We will consult Dr. Diane to see the patient for further evaluation. Unfortunately, her volume status is very tenuous. As we diurese her to improve her breathing, her renal function declines. I suspect that she ultimately may require dialysis at some point in the future. cc: Olivia Massey MD
[2016-12-16] MEDS: ADVAIR 250/50 DISKUS INH SCH ×2 (11:05→19:25)
[2016-12-16] MEDS: SPIRIVA INH SCH (11:05)
--- NOTE | 2016-12-16 13:02 | Diag Imaging Result Doc PS360 ---
EXAM: US RENAL 2 (RETROPER) COMPLETE HISTORY: elevated creatinine TECHNIQUE: Transabdominal COMMENT: The kidneys are somewhat hyperechoic and atrophic in appearance. The right measures 8.4 x 4.5 x 4.9 cm the left is 9.7 x 3.1 x 3.4 cm. There is a cyst in the upper pole of the right kidney measuring 13 mm in greatest dimension and in the lower pole of the left kidney there is a 2.6 cm cyst. There is also a 7 mm cyst in the upper pole of the left kidney. There is a 1.5 cm gallstone incidentally noted in the gallbladder. This was also present at the time the previous examination of 09/26/2016. IMPRESSION: Medical renal disease. Cholelithiasis. Electronically signed by Trey Stanford 12/16/2016 12:59 PM
[2016-12-16 15:19] LABS: UR CREAT RANDOM 67.2 mg/dL (11-20)
--- NOTE | 2016-12-16 17:01 | CONSULTATION ---
DATE OF CONSULTATION: 12/16/2016 REASON FOR ADMISSION: Increased work of breathing x1 week with lower extremity swelling. REASON FOR CONSULT: Acute kidney injury on CKD stage 4. CONSULTING PHYSICIAN: Dr. Massey. HISTORY OF PRESENT ILLNESS: Ms. Oconnor is an 81-year-old white female who is known to our outpatient services for chronic kidney disease stage 4. Her last creatinine was 2.77 at her last visit on October 09, 2016. Patient had had increase of her Lasix and had an elevation of her creatinine from her baseline of 1.5 to 2.1. Unfortunately, our office indicates that the patient has no showed x1 and canceled x3 since her September appointment. Her next scheduled appointment in our office is for 04/15/2017. Patient states that she is actually feeling much better since her admission. She denies any chest pain. States her increased work of breathing has improved. She states that her swelling has improved. She denies nausea, vomiting, or diarrhea. No fever or chills. Subsequently during her hospitalization she has received Lasix. She has been given Bactrim DS b.i.d. for a urinary tract infection and is currently up until this a.m. taking Multaq. PAST MEDICAL HISTORY: Known for chronic kidney disease stage 4, baseline creatinine of 1.3 to 2.1, last creatinine 2.7 in September of 2016, hypertension, COPD with home O2. She has renal artery stenosis with previous stent placement and a resection of her right kidney. PAST SURGICAL HISTORY: Breast biopsy, cataract surgery, hysterectomy, renal artery stent placed with a partial resection of her right kidney per Dr. Ware. SOCIAL HISTORY: Patient is a resident of an assisted living facility. She denies tobacco, alcohol, or illicit drug use. FAMILY HISTORY: No cancer or heart disease for 1st degree relatives. Positive for heart disease in her parents. Negative for kidney disease in her first-degree relatives. CURRENT ALLERGIES: Listed as Levaquin. HOME MEDICATIONS: Aspirin, digoxin, Multaq, Advair, Lasix, Apresoline, nifedipine, Spiriva, vitamin B12 with folic acid, B complex vitamin. REVIEW OF SYSTEMS: Times 10 with pertinent positives listed above in the HPI. VITAL SIGNS: Her most recent vital signs, temperature 98.2 degrees, blood pressure 166/57, heart rate 70, respirations 20. She is on 2 L nasal cannula. Last recorded saturation 95%. She has had 800 in. She has had 1125 out per void. She is -3.7 L since her admission. LABS: Sodium 136, potassium 4.7, chloride 97, CO2 27, BUN 54, creatinine 3.1, glucose 99. Her anion gap is 12, calcium 8.7, white count 6.04, hemoglobin 8.6, hematocrit 26.7 , with a platelet count of 453,000. Patient's erythropoietin level is greater than 25.8. Her BNP is 7,395. Renal ultrasound indicates the right kidney measuring 8.4 with the left measuring 9.7 , also indicating cholelithiasis with gallstone evident. Urinalysis indicates positive bacteria and proteinuria with elevated WBCs. PHYSICAL EXAMINATION: General: This is an 81-year-old, frail white female. She is in no distress. Skin: Warm and dry. HEENT: Normocephalic, atraumatic. Conjunctivae pale. She has ALLEN. Neck: Supple. Trachea midline. No JVD. Cardiovascular: She is regular rate and rhythm. She has a positive systolic murmur. No gallop appreciated. Lungs: Clear to auscultation anteriorly. Equal excursion. She is currently on O2. Abdomen: Soft, nontender. Positive bowel sounds. Extremities: Patient has 1 to 2+ lower extremity edema bilateral. No clubbing or cyanosis. Neurological: She is alert and oriented x3. Integumentary: No rashes or lesions noted. ASSESSMENT: 1. Acute on chronic chronic kidney disease stage 4. Patient's creatinine is up to 3.1. Her baseline last seen in our office was at 2.77. We agree with holding her Multaq and her Lasix at this time. She is now receiving normal saline at 60 mL an hour. We will change her Bactrim to single strength 1 time daily for appropriate renal dosing and will look for urine electrolytes. No acute disease noted on renal ultrasound. 2. Electrolytes. These are stable. 3. Acid-base balance. This remains stable. 4. Anemia. This is low but stable. We will defer to the primary care team for intervention if needed. PLAN: Patient appears to be in fluid volume deficit. She is 3.7 L negative in the last 3-4 days. She is currently receiving IV fluid resuscitation at a gentle rate. We will evaluate her labs in the a.m. I would like to thank you for allowing us to follow with this patient. Data reviewed, discussed with Roddy Garrison on 12/16/16. I agree with the above assessment and plan of care. rg Dictated by JOSE Hwang for Catarino Diane MD cc: JOSE Hwang MD M. Neel Roberts, MD [facility]ITAL[facility]ianca
[2016-12-17] MEDS: CARDIZEM PO SCH ×4 (01:35→18:45)
[2016-12-17] MEDS: DUONEB (A & A) INH SCH ×5 (03:43→21:20)
[2016-12-17] MEDS: LOVENOX SUBQ SCH (05:01)
[2016-12-17] MEDS: APRESOLINE PO SCH ×2 (05:01→13:12)
[2016-12-17 05:26] LABS: CALCIUM 8.4 mg/dL (8.8-10.2); POTASSIUM 4.9 mmol/L (3.5-5.1)
[2016-12-17] MEDS ORDERED: SALINE LOCK IV FLUID XX ONE (08:06)
[2016-12-17 08:32] LABS: ALLEN TEST YES; BE 0.4 mmoll (-3.0-3.0); BLOOD TYPE ARTERIAL; DRAW SITE L RADIAL; METHB 0.6 % (0.0-1.5); MODALITY CANNULA; O2(CT) 10.8 mL/dL (15.0-23.0); PCO2(98.6) 35 mmHg (35-45); PO2(98.6) 73 mmHg (60-100); SAMPLE BLOOD; SAO2 97.8 % (95.0-100.0); pH(98.6) 7.45 (7.35-7.45)
[2016-12-17] MEDS: PAXIL PO SCH (08:38)
[2016-12-17] MEDS: ASPIRIN PO SCH (08:38)
[2016-12-17] MEDS: FOLIC ACID PO SCH ×2 (08:38→20:01)
[2016-12-17] MEDS: SEPTRA DS PO SCH (08:38)
[2016-12-17] MEDS: ADVAIR 250/50 DISKUS INH SCH ×2 (09:21→21:20)
[2016-12-17] MEDS: SPIRIVA INH SCH (09:21)
--- NOTE | 2016-12-17 09:23 | Diag Imaging Result Doc PS360 ---
CHEST-PORTABLE - 12/17/2016 INDICATION: chf TECHNIQUE: COMPARISON: 12/13/2016 FINDINGS: Stable significant cardiomegaly. Stable COPD. Stable significant peripheral coronary scarring. There is worsening in the central interstitial infiltrates best seen at the hilum bilaterally. There are small pleural effusions. IMPRESSION: Interstitial pulmonary edema. Cardiomegaly. COPD with pulmonary fibrosis and scarring. Electronically signed by Valentin Carson 12/17/2016 9:21 AM
[2016-12-17] MEDS: FLONASE NAS SCH ×2 (09:37→20:01)
[2016-12-17] MEDS ORDERED: LASIX IV ONE (12:45)
--- NOTE | 2016-12-17 14:55 | PROGRESS NOTE ---
DATE: 12/17/2016 SUBJECTIVE: Mrs. Oconnor was admitted to [facility] with acute on chronic congestive heart failure secondary to diastolic dysfunction. We held her Lasix and Multaq yesterday because her creatinine jumped from 2.1 to 3.1. We cautiously gave her a liter of fluid over the course of several hours. Her creatinine has dropped from 3.1 to 2.5. A renal ultrasound demonstrated renal medical disease, there was no hydronephrosis. She is with complaint of worsening shortness of breath and increasing work of breathing. OBJECTIVE: Chest x-ray showed COPD with pulmonary fibrosis and scarring. She did have some interstitial edema. Arterial blood gases demonstrated a pH of 7.45, pCO2 35, PO2 73, and an O2 saturation of 97.8%.Vital signs: Temperature 98.4 degrees, pulse 77, respirations 20, BP 193/69. CV: Regular rate and rhythm. Lungs: Faint crackles in the bases bilaterally. Abdomen: Soft, nontender, with active bowel sounds. No hepatosplenomegaly. No abdominal bruits. ASSESSMENT AND PLAN: 1. Acute on chronic congestive heart failure secondary to diastolic dysfunction. Her renal function has improved with gentle fluid resuscitation but she is having more shortness of breath. I will give her Lasix 40 mg IV x1 dose now. She is not retaining carbon dioxide and I do not believe that she would benefit from BiPAP. We will continue supplemental O2. 2. Acute on chronic renal failure. We will proceed with a 24-hour urine study to assess her creatinine clearance. I believe that in all likelihood, she is approaching the need for dialysis which would certainly help us to control her fluid status and kidney disease more efficiently. Her volume status is tenuous from day to day. cc: Olivia Massey MD
--- NOTE | 2016-12-17 15:15 | PROGRESS NOTE ---
DATE: 12/17/2016 TIME SEEN: 08:05. SUBJECTIVE: Ms. Oconnor is sitting directly up in bed. She states that she had gotten severely short of breath. About somewhere between 3:30 and 4:30 this a.m. She had to have her oxygen increased to 5 L nasal cannula. Unable to get a saturation between 92 and 95%. Patient had her fluids stopped midmorning and was given a large dose of Lasix per Dr. Massey. Subsequently, patient states that she has been told that some time in the future she may possibly require dialysis for assistance with her fluid volume. She does deny chest pain. Positive increased work of breathing. Her O2 is currently on 4 L nasal cannula. She is doing pursed lip breathing at this time. Her son is at her bedside. Denies nausea or vomiting. OBJECTIVE: Vital signs: Her most recent vital signs, temperature 98.2 degrees , blood pressure of 166/56, heart rate 78, respirations 20. She is on 4 L nasal cannula. Last recorded saturation 97%. She has had 902 in. She has had 700 out per void. General: This is an 81-year-old elderly white female. She is in moderate distress this a.m. secondary to increased work of breathing. She remains upright position. O2 is on 4 L. Skin: Warm and dry. HEENT: Normocephalic, atraumatic. Conjunctivae pale. She has ALLEN. Mucous membranes are dry. Neck : Supple. Trachea midline. She has trace JVD at this 90 degrees angle. Cardiovascular: She has a regular rate and rhythm. She has a positive systolic murmur. No gallop. Lungs: She has faint bibasilar crackles, right greater than left. She remains on O2. Equal excursion. Abdomen: Soft, nontender. Positive bowel sounds. Genitourinary: The patient has been voiding adequate amount. Extremities: She has 1+ lower extremity edema bilateral. No clubbing or cyanosis. Neurological: She is alert and oriented x3. LABORATORY DATA: Sodium 134, potassium 4.9, chloride 99, CO2 25, BUN 49, creatinine 2.5, glucose 95. Her anion gap is 10, calcium 8.4, previous hemoglobin 8.6 on the 24th. Patient had a fractionated urea score of 53.05% indicating more intrarenal. Her renal ultrasound indicates bilateral atrophic kidneys. ASSESSMENT AND PLAN: 1. Acute kidney injury on chronic kidney disease stage 4. Patient did have an improvement in her BUN and creatinine secondary to her diuretics being held. Unfortunately, she has had any increased work of breathing overnight. Fluid volume overload. She has had her increased oxygenation and had IV stopped and Lasix given. We have discussed a possible plan with Dr. Massey. He would like to have a 24 hour urine started at this time to determine patient's creatinine clearance. Patient is in agreement. 2. Electrolytes and acid-base balance. These remain stable. 3. Anemia. This is low, but stable. 4. Fluid volume overload. Patient has a history of congestive heart failure secondary to diuretic affect. Her creatinine had bumped above her baseline. She was given gentle IV fluid hydration and did not tolerate this well. Subsequently, her IV fluids are off and she has received a dose of Lasix with oxygenation support. PLAN: We have discussed possible outcomes in relationship to flash pulmonary edema with congestive heart failure and requirements of Lasix and worsening of her renal function. Patient states that she is open to starting dialysis if indicated. We will plan at this point to check her 24 hour urine and will proceed from that site. I would to thank you for allowing us to follow with this patient. Seen, data reviewed, discussed with Roddy Garrison on 12/17/16. I agree with the above assessment and plan of care. rg Dictated by JOSE Hwang for Catarino Diane MD cc: JOSE Hwang MD M. Neel Roberts, MD [facility]ianca
--- NOTE | 2016-12-17 17:57 | PROGRESS NOTE ---
DATE: 12/17/2016 SUBJECTIVE: Patient had increased shortness of breath with IV fluid administration this morning with hypoxemia. Patient subsequently had intravenous fluids stopped was administered intravenous Lasix. She is currently feeling better. OBJECTIVE: Vital Signs: Blood pressure 163/59, heart rate 77 and irregular with ECG monitor showing sinus rhythm. Jugular venous pressure is somewhat pulsatile with dramatic changes during respiratory cycle. Chest: Auscultation of the chest reveals bibasilar inspiratory crackles. It is noteworthy that these had disappeared with initial diuresis and now have re-emerged. Cardiac: Reveals a regular rate and rhythm without appreciable murmur or gallop. Extremities: Demonstrate 1 to 2+ pretibial edema with chronic venous stasis changes. IMPRESSION: 1. Acute on chronic congestive heart failure. Clearly she has diastolic heart failure and probably has a component of right heart failure as well. Volume status indeed appears to be somewhat tenuous and this is made difficult by renal dysfunction. She definitely cleared her pulmonary inspiratory crackles with initial diuresis and these have re-emerged. Pedal edema, however, may be persisting as the patient is sleeping with head of bed elevated. 2. Paroxysmal atrial fibrillation. 3. 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 4. Chronic kidney disease with recent acute on chronic renal dysfunction following diuresis. Renal function now improving. 5. History of atherosclerotic peripheral vascular disease and previous renal artery stent. Patient very well may have renal vascular disease playing a role, but it is unlikely that further percutaneous intervention will alter the course of her cardiovascular disease and renal function. RECOMMENDATIONS: 1. Agree with discontinuing IV fluids and diuresing further very cautiously. 2. Increase diltiazem and discontinue hydralazine in light of the significant component of left ventricular diastolic dysfunction present. 3. Resume dronedarone as it is metabolized hepatically and maintenance of sinus rhythm important in trying to address her left ventricular diastolic dysfunction. 4. Conservative cardiovascular care overall. cc: MD Olivia Contreras MD
[2016-12-17] MEDS: MULTAQ PO SCH (20:01)
[2016-12-17] MEDS: ZOFRAN IV PRN (23:12)
[2016-12-18] MEDS: CARDIZEM PO SCH ×4 (01:20→16:29)
[2016-12-18] MEDS: DUONEB (A & A) INH SCH ×2 (03:25→09:17)
[2016-12-18 05:33] LABS: ALBUMIN 3.6 g/dL (3.5-5.0); CALCIUM 8.9 mg/dL (8.8-10.2); POTASSIUM 5.5 mmol/L (3.5-5.1)
[2016-12-18] MEDS: LOVENOX SUBQ SCH (05:58)
--- NOTE | 2016-12-18 08:27 | PROGRESS NOTE ---
DATE: 12/18/2016 SUBJECTIVE: Ms. Oconnor is resting quietly in bed. She is sitting up but she states that she is feeling 85% better than she was yesterday. She continues on 4 L nasal cannula. She denies nausea or vomiting. No chest pain today. OBJECTIVE: Vital signs: Her most recent vital signs, temperature 98.7 degrees , blood pressure 150/51, heart rate 73, respirations 16. She is on 4 L nasal cannula. Last recorded saturation 94%. She has had 910 in, 1900 out per void. Labs: Sodium 133, potassium 5.5 , chloride 97, CO2 24, BUN 49, creatinine 2.5, glucose 105. Her anion gap is 12, calcium 8.9, phosphorus 4.1, albumin 3.6. Previous hemoglobin 8.6 on the . She has a 24 hour urine that is currently in progress and pending. PHYSICAL EXAMINATION: General: This is an 81-year-old white female. She is in no distress today though she does appear chronically ill. Skin: Warm and dry. HEENT: Normocephalic, atraumatic. Conjunctivae pale. She has ALLEN. Mucous membranes are moist. Neck: Supple. Trachea midline. No JVD. Cardiovascular: Regular rate and rhythm. She has positive systolic murmur. No gallop. Lungs: Clear to auscultation anteriorly. Diminished breath sounds posterior right base. Otherwise no crackles or wheezes. She remains on O2. Equal excursion. Abdomen : Soft, nontender. Positive bowel sounds. Genitourinary: Not inspected. Patient has been voiding with collection for 24 hour urine. Extremities: She has trace to 1+ lower extremity edema bilateral. No clubbing or cyanosis. Neurological: Alert and oriented x3. ASSESSMENT AND PLAN: 1. Acute kidney injury on chronic kidney disease. Patient is actually stable at her baseline of 2.5. She was treated with diuretics yesterday for increased work of breathing and pulmonary edema. She has improved with her fluid volume overload. Adequate urine out. We will continue to await her 24 hour urine results. We will go ahead and have vein mapping performed. OK to discharge later today if symptoms are stable. She can see Dr. Garcia as an outpatient to plan dialysis access. Discussed this plan with Dr. Massey. rg 2. Electrolytes and acid-base balance. These remain stable with mild hyperkalemia with no need for intervention. 3. Anemia. This has been stable but low. 4. Fluid volume overload. This has improved with diuretic therapy. Patient has known diastolic heart failure. This is being followed by her primary care team and cardiology patient responded well to her diuretic therapy. I would like to thank you for allowing us to follow with this patient. Seen, data reviewed, discussed with Roddy Garrison on 12/18/16. I agree with the above assessment and plan of care. rg Dictated by JOSE Hwang for Catarino Diane MD cc: JOSE Hwang MD M. Neel Roberts, MD [facility]
[2016-12-18] MEDS: FOLIC ACID PO SCH (08:46)
[2016-12-18] MEDS: MULTAQ PO SCH (08:46)
[2016-12-18] MEDS: SEPTRA DS PO SCH (08:46)
[2016-12-18] MEDS: PAXIL PO SCH (08:46)
[2016-12-18] MEDS: ASPIRIN PO SCH (08:47)
[2016-12-18] MEDS: FLONASE NAS SCH (08:47)
--- NOTE | 2016-12-18 09:06 | PROGRESS NOTE ---
DATE: 12/18/2016 SUBJECTIVE: Ms. Amna Oconnor was admitted to [facility] with acute on chronic congestive heart failure secondary to diastolic dysfunction. We placed her on a salt and fluid- restricted diet and aggressively diuresed her. With aggressive diuresis her BUN and creatinine bumped significantly. We held her Lasix and cautiously gave her fluid, which improved her kidney function. Her creatinine dropped from 3.1 to 2.5. Unfortunately, she developed worsening pulmonary edema and had shortness of breath. We gave her additional Lasix yesterday and she is breathing comfortably. She is maintaining O2 saturations of 94% to 96% on 4 L of O2 per nasal cannula. A 24-hour urine study is in progress. She remains in normal sinus rhythm. She has not had any recurrent episodes of atrial fibrillation. OBJECTIVE: Vital signs: Temperature 97.7 degrees, pulse 71, respirations 16, BP 164/62. CV: Regular rate and rhythm with a soft systolic murmur. Lungs: Distant breath sounds with increased period of expiration. No crackles were noted. Abdomen: Soft, nontender, with active bowel sounds. Extremities: Trace ankle edema. LABORATORY STUDIES: Various laboratory studies were obtained. Electrolytes demonstrated the following: Sodium 133, potassium 5.5, chloride 97, CO2 24, BUN 49, creatinine 2.5 and glucose 105. ASSESSMENT AND PLAN: 1. Acute on chronic congestive heart failure secondary to diastolic dysfunction. We will continue a salt and fluid-restricted diet. I will continue Cardizem 60 mg every 8 hours. She will weigh daily. She will take Lasix if she gains 1-2 pounds in a period of 24 hours. We will continue supplemental oxygen. 2. Acute on chronic renal failure. Her 24 hour urine study will be complete this morning. Dr. Diane and I believe that she is going to be a candidate for dialysis. Her fluid volume and fluid status are tenuous. When we diurese her aggressively so that she can breathe, her BUN and creatinine bump. When we give her fluids to improve her renal function, her shortness of breath worsens. We will proceed with vein mapping today in anticipation of arranging for dialysis access as an outpatient. 3. Depression. We will continue Paxil 20 mg daily. cc: Olivia Massey MD
[2016-12-18] MEDS: ADVAIR 250/50 DISKUS INH SCH (09:16)
[2016-12-18] MEDS: SPIRIVA INH SCH (09:17)
[2016-12-18 09:44] LABS: UR CREATININE 37.6 mg/dL (11-20); UR CREATININE TOTAL 676.8 mg/24 (600-1600); UR PROTEIN 166.1 mg/dL
[2016-12-18] MEDS: ZOFRAN IV PRN (09:50)
[2016-12-18] MEDS ORDERED: LASIX IV ONE (10:40)
[2016-12-18 17:04] VITALS: BP 153/57
[2016-12-19] MEDS ORDERED: LASIX PO SCH (09:00)
--- NOTE | 2016-12-19 13:11 | DISCHARGE SUMMARY ---
ADMISSION DATE: 12/12/2016 DISCHARGE DATE: 12/18/2016 DISCHARGE DIAGNOSES: 1. Chronic respiratory failure with hypoxia requiring O2 at 3 L per nasal cannula continuously. 2. Acute on chronic congestive heart failure secondary to severe diastolic dysfunction. 3. Severe chronic obstructive pulmonary disease with pulmonary fibrosis. 4. Hypertension secondary to renal artery stenosis. 5. Acute on chronic renal failure. 6. Paroxysmal atrial fibrillation. 7. Allergic rhinitis. 8. No Code Blue Level 1. 9. Urinary tract infection (urine cultures grew out Escherichia coli). DISCHARGE INSTRUCTIONS: The patient will be discharged to home and will need to set up an appointment in 1 week to see me, Dr. Robert Massey, in anticipation of a transition of care visit. ACTIVITY: As tolerated. DIET: No added salt diet. MEDICATIONS: Aspirin 81 mg daily, Spiriva 1 inhalation daily, Advair 250/50 one puff b.i.d., DuoNeb nebulizer treatments nebulized t.i.d., diltiazem 60 mg q.8 hours, Lasix 40 mg daily and may take a second Lasix if she gains 1-2 pounds in 24 hours, Multaq 400 mg b.i.d., Flonase nasal spray 2 sprays to each nostril b.i.d., folic acid 1 mg b.i.d., Paxil 20 mg daily, Bactrim DS 1 p.o. daily for 7 days. DISCHARGE PHYSICAL EXAMINATION: General: This is an elderly, frail, 81-year-old lady in no apparent distress. Vital signs: Temperature 98.6 degrees, pulse 65, respirations 20, BP 144/57. HEENT: Fundi with arteriolar wall thickening. Pupils equal, round, and reactive to light. Extraocular eye movements intact. TMs without bullae. Neck: Supple. No masses, JVD, or bruits. CV: Regular rate and rhythm with a soft systolic murmur. Lungs: Decreased breath sounds with increased period of expiration. Faint crackles in the bases. Abdomen: Soft, nontender, with active bowel sounds. Extremities: Trace ankle edema. REASON FOR ADMISSION AND HOSPITAL COURSE: Mrs. Oconnor has a history of paroxysmal atrial fibrillation. She remained in normal sinus rhythm throughout her hospitalization. She was continued on aspirin and Multaq 400 mg b.i.d. Her heart rate was well controlled on Cardizem. She has a history of chronic respiratory failure with hypoxia secondary to severe COPD and pulmonary fibrosis. Chest x-rays demonstrated chronic COPD type changes and severe fibrotic changes. She was maintained on her regular regimen of medications including Spiriva 1 inhalation daily, Advair 250/50 one puff b.i.d., and DuoNeb nebulizer treatments t.i.d. She does have a history of acute on chronic congestive heart failure secondary to diastolic dysfunction. Her initial chest x-ray demonstrated increased interstitial edema and small bilateral effusions. Her proBNP was in excess of 10,000. The patient was admitted to the CICU. She was placed on a salt and fluid restricted diet and aggressively diuresed with Lasix. In order to increase cardiac compliance, we titrated upward on Cardizem. She was tolerating Cardizem at 60 mg q.8 hours. Because of her renal dysfunction, we stopped the digoxin as well as the hydralazine. With aggressive diuresis the patient improved clinically and was felt stable for discharge. We will continue her on a salt restricted diet. I asked her to weigh daily and she may take an additional Lasix if she gains 1-2 pounds in 24 hours. We will continue with continuous home oxygen. She has a history of acute on chronic renal failure. Her baseline creatinine on admission was 2.1. She jumped to 3.1 with aggressive diuresis for her underlying congestive heart failure. We cautiously gave her fluids and the creatinine dropped to 2.5. A 24 hour urine study demonstrated a creatinine clearance of 19. An ultrasound of the kidneys demonstrated chronic medical renal disease. Her volume status is tenuous. When we aggressively diurese her, her renal function deteriorates. When we hold Lasix to improve her renal function, her congestive heart failure worsens. Dr. Diane saw the patient in consultation. Given her tenuous fluid status and chronic renal failure we felt that the patient would benefit from chronic dialysis. Vein mapping was performed in the hospital. We will make arrangements as an outpatient to achieve access for the purpose of dialysis. During her hospitalization she was with complaint of dysuria, increased urinary frequency, and low back pain. Urine cultures grew out E. coli susceptible to multiple drugs. We will continue an additional 7 day course of Bactrim DS 1 p.o. daily dosed for her chronic renal insufficiency. Mrs. Oconnor does have a Living Will. She has stated that in the event of a cardiopulmonary arrest that no heroic measures should be undertaken. A No Code Blue Level 1 has been established. Having reached maximum hospital benefit, the patient was discharged in stable condition. cc: Olivia Massey MD
--- NOTE | 2016-12-19 19:34 | VASCULAR LAB ---
DATE: 12/18/2016 STUDY: Bilateral upper extremity vascular mapping for evaluation of dialysis access. VALUE ANALYST: Pasha REQUESTING PHYSICIAN: Dr. Diane. INDICATION: End-stage renal disease. Starting on the right in the cephalic vein, zone 1 - 3.1 mm, zone 2 - 3.5 mm, zone 3 - 3.4 mm, zone 4 - 3.0 mm, zone 5 - 4.4 mm, zone 6 - 3.0 mm, zone 7 - 3.2 mm, zone 8 - 3.1 mm. Basilic vein on the right, zone 2 - 3.9 mm, zone 3 - 3.9 mm, zone 4 - 3.0 mm, zone 5 - 2.1 mm, there is an incidentally noted superficial venous thrombosis seen at the median cubital vein, zone 6 - 2.4 mm, zone 7 - 1.3 mm, zone 8 not visualized. On the left cephalic vein starting at zone 1 - 4.4 mm, zone 2 - 3.5 mm, zone 3 - 3.0 mm, zone 4 - 2.5 mm, zone 5 - 3.6 mm, zone 6 - 3.0 mm, zone 7 - 2.6 mm, zone 8 - 1.6 mm. Basilic vein on the leg, zone 2 - 4.0 mm, zone 3 - 3.1 mm, zone 4 - 3.0 mm, zone 5 - 3.2 mm, the median cubital vein is 1.9 mm, zone 6 - 1.7 mm, zone 7 - 1.7 mm, zone 8 - 1.8 mm. The brachial artery on the right 3.2 mm, on the left 4.3 mm. Radial artery on the right 2.6, on the left 2.3. Ulnar on the right is 2.0, on the left 2.0. FINDINGS: There does appear to be on the right side adequate conduit for a radiocephalic fistula at the wrist on the right. The vein also appears of good quality proximal in the arm on the right side. On the left, similarly, the vein is not quite as robust distally but more in the proximal forearm the cephalic vein becomes more adequate caliber and is, again, of adequate diameter throughout the upper arm as well. SUMMARY: There appears to be adequate conduit for a radiocephalic fistula at the wrist on the right but will most likely require further up the forearm or even proximal arm radiocephalic fistula. There is an incidentally noted superficial venous thrombosis seen in the antecubital vein on the right, but otherwise all the veins are compressible at all locations examined. cc: MD Catarino Scott MD M. Neel Roberts, MD
== END 2016-12-18 17:05 ==
LOC: ED 19:45 → EDIPHOLD 12-12 03:35 → SUATTDRO 12-12 03:35 → ICU 12-12 04:29 → 3S 12-12 19:44
PROVIDERS: ADMIT Internal Medicine; ATTEND Internal Medicine

== ENCOUNTER 2016-12-25 13:40 | Inpatient (IN) ==
[2016-12-25] MEDS ORDERED: SALINE LOCK IV FLUID XX ONE (13:51)
[2016-12-25] MEDS ORDERED: CYANOCOBALAMIN IM SCH (15:09)
--- NOTE | 2016-12-25 15:48 | Diag Imaging Result Doc PS360 ---
EXAM: CHEST-2 VIEWS HISTORY: COPD CHF TECHNIQUE: Two views COMPARISON: 12/17/2016 FINDINGS: There are increased interstitial markings throughout both lungs. The lungs are hyperexpanded. There is an increased AP diameter to the chest. Heart is enlarged. Mild scoliosis. IMPRESSION: There are increased interstitial markings representing fibrosis or persistent infiltrates with no interval improvement. Patient also has emphysema. Electronically signed by Philip Stovall 12/25/2016 3:45 PM
[2016-12-25] MEDS: DUONEB (A & A) INH SCH ×2 (16:05→21:21)
[2016-12-25 16:18] LABS: HEMATOCRIT 27.1 % (37.0-47.0); HEMOGLOBIN 8.7 g/dL (12.0-16.0); MCH 27.3 PG (27-31); MCHC 32.1 g/dL (33-37); MPV 8.4 FL (7.4-10.4); RBC 3.19 XMIL (4.2-5.4)
[2016-12-25 16:25] LABS: ALLEN TEST YES; BE 1.1 mmoll (-3.0-3.0); BLOOD TYPE ARTERIAL; DRAW SITE R RADIAL; METHB 0.9 % (0.0-1.5); O2(CT) 11.6 mL/dL (15.0-23.0); PCO2(98.6) 34 mmHg (35-45); PO2(98.6) 86 mmHg (60-100); SAMPLE BLOOD; SAO2 99.1 % (95.0-100.0); THB 8.5 g/dL (11.5-17.4); pH(98.6) 7.47 (7.35-7.45)
[2016-12-25 16:29] LABS: MODALITY CANNULA
[2016-12-25 16:34] LABS: CALCIUM 8.6 mg/dL (8.8-10.2)
--- NOTE | 2016-12-25 17:47 | HISTORY AND PHYSICAL ---
CHIEF COMPLAINT: Shortness of breath. HISTORY OF PRESENT ILLNESS: Mrs. Amna Oconnor, is an 81-year-old, lady with a history of chronic respiratory failure with hypoxia, secondary to severe COPD and pulmonary fibrosis, labile hypertension, secondary to renal artery stenosis, paroxysmal SVT, chronic renal failure and depression, who is well known to me. She has been hospitalized multiple times during the course of the year. She was most recently hospitalized from 12/12 to 12/18 with acute on chronic respiratory failure secondary to acute on chronic congestive heart failure secondary to diastolic dysfunction. During her most recent hospitalization, we continued the supplemental O2 and titrated upward on the diltiazem to improve cardiac compliance. We had stopped her Apresoline and nifedipine. Her volume status over the past several months has been tenuous as we diurese her more aggressively, so that she can breathe comfortably her renal function deteriorates. If we give her fluids to improve her renal function, her pulmonary status deteriorates. She had a recent 24 hour urine in the hospital which demonstrated a creatinine clearance of approximately 19. She has undergone vein mapping and Dr. Diane is planning to arrange for her to have placement of access for the purpose of dialysis. She presented to the office today complaining of increasing shortness of breath, increasing work of breathing. Increasing peripheral edema, PND and orthopnea. Her O2 saturation was 86% on 3 L of O2. Her chest x-ray demonstrated chronic fibrotic changes and increased interstitial edema. PAST MEDICAL HISTORY: As above. PAST SURGICAL HISTORY: Surgical breast biopsy. Cataract surgery, hysterectomy. ALLERGIES: Levaquin. FAMILY HISTORY: Father at the age of 73. He had heart disease status post [place] and hypertension. Mother at the age of 92. She had hypertension and stroke. SOCIAL HISTORY: She is a former smoker. She does not consume alcoholic beverages. [place] is a [place] [facility] [place] MEDICATIONS: Aspirin 81 mg daily. Spiriva 1 inhalation daily, Advair 250/50 one puff b.i.d., DuoNeb nebulizer treatments t.i.d., diltiazem 60 mg q.8 hours. Lasix 40 mg daily, and may take a second Lasix if she gains 1-2 pounds in 24 hours. Multaq 400 mg b.i.d., Flonase nasal spray 2 sprays to each nostril b.i.d., folic acid 1 mg b.i.d., Paxil 20 mg daily. REVIEW OF SYSTEMS: General: She denies any recent weight gain or weight loss. HEENT: She wears glasses. She is hard of hearing. CV: No chest pain, palpitations, or anginal equivalents. Pulmonary: No shortness of breath, PND, orthopnea. GI: No reflux, dysphagia, melena, hematochezia, change in bowel habits, or rectal bleeding. Endocrine: No polyuria, no polydipsia. No cold or heat intolerance. : No leakage of urine with coughing or laughing. Skin: No easy bruisability. Neuro: No migraines or seizures. Psychiatric: History of depression. PHYSICAL EXAMINATION: GENERAL: This is a chronically ill-appearing, elderly, frail 81-year-old lady in mild distress secondary to shortness of breath. VITAL SIGNS: Temperature 97.8, pulse 76, respirations 14, BP 134/97. HEENT: Fundi with arteriolar wall thickening. Pupils equal, round, reactive to light. Extraocular eye movements intact. TMs without bullae. NECK: Supple. No masses, JVD or bruits. CV: Regular rate and rhythm. LUNGS: Distant breath sounds with increased period of expiration with crackles in the bases bilaterally. ABDOMEN: Soft, nontender, with active bowel sounds. No hepatosplenomegaly. No abdominal bruits. EXTREMITIES: 2+ pitting edema bilaterally. NEUROLOGIC: Nonfocal. ASSESSMENT AND PLAN: 1. Acute on chronic respiratory failure with hypoxia secondary to acute chronic obstructive pulmonary disease exacerbation and acute on chronic congestive heart failure secondary to diastolic dysfunction. I will admit her to [facility]. Place her on a salt and fluid restricted diet. We will titrate upward on the Cardizem as tolerated. We will aggressively diurese her with Lasix 40 mg IV q.12 hours and follow strict intake and output. I will recheck a portable chest x-ray in the morning. Potentially, she would benefit from the use of oral Zaroxolyn in addition to daily Lasix and p.r.n. Lasix if she gains weight. 2. Chronic respiratory failure risk secondary to severe chronic obstructive pulmonary disease. She does have severe COPD and pulmonary fibrosis. She has been on amiodarone in the past. She is currently on Multaq. We will continue Spiriva 1 puff inhalation daily, Advair 250/50 one puff b.i.d., and DuoNeb nebulizer treatments t.i.d. I am going to consult Dr. Zuniga for recommendations on how to better manage her COPD. I do not know if she would potentially be a candidate for BiPAP at home. 3. Paroxysmal atrial fibrillation. She has not tolerated atrial fibrillation with rapid rate in terms of her heart failure. I realize the Multaq can cause pulmonary fibrosis but we feel that it is necessary to continue the Multaq to hopefully keep her in sinus rhythm as she does not tolerate atrial fibrillation and flutter very well. We will continue aspirin 81 mg daily and Cardizem for rate control as well as the diltiazem. Given her clinical presentation and comorbid conditions, I believe that admission to the hospital is necessary. I anticipate that she will be in the hospital for at least 2 midnights and I will therefore place her in inpatient status. We will begin Lovenox 30 mg subcutaneously daily for deep vein thrombosis prophylaxis given the chronic renal failure. cc: Olivia Massey MD
[2016-12-25] MEDS: CARDIZEM PO SCH (19:09)
[2016-12-25] MEDS: LASIX IV SCH (19:10)
[2016-12-25] MEDS ORDERED: MULTAQ PO SCH (21:00)
[2016-12-25] MEDS: FLONASE NAS SCH (22:20)
[2016-12-25] MEDS: MULTAQ PO SCH (22:21)
[2016-12-25] MEDS: FOLIC ACID PO SCH (22:21)
[2016-12-26] MEDS: CARDIZEM PO SCH ×4 (00:04→23:11)
--- NOTE | 2016-12-26 05:06 | CONSULTATION ---
DATE OF CONSULTATION: 12/25/2016 REQUESTING PHYSICIAN: Dr. Massey. REASON FOR CONSULTATION: Severe COPD. HISTORY OF PRESENT ILLNESS: Ms. Oconnor is an 81-year-old, white female with a history of COPD who smoked between 1953 in 1987, approximately 1/2 pack per day. The patient reports that she has required oxygen for over a year. Her chest x-rays have been reviewed. Her chest x-ray in 2012 was relatively clear but she developed bilateral infiltrates in 2014 which have subsequently progressed since that time. The patient has a remote history of TB exposure to her grandfather but she tested negative for tuberculosis and never required treatment. The patient has a cardiac dysrhythmia and is currently on Multaq but this medication began after she already had radiographic changes. The patient reports an occasional dry cough but denies hemoptysis, fevers, chills, or sputum production. PAST MEDICAL HISTORY/PROBLEM LIST: 1. Severe COPD and chronic hypoxemic respiratory failure. 2. Renal artery stenosis and pulmonary hypertension. 3. Paroxysmal supraventricular tachycardia. 4. Chronic renal failure. 5. Left ventricular diastolic dysfunction. 6. Moderate mitral regurgitation and tricuspid regurgitation. 7. Moderate pulmonary hypertension. 8. Mild atherosclerotic coronary artery disease. 9. Abdominal aortic aneurysm. 10. Status post hysterectomy. 11. Status post cataract surgery. 12. Status post partial resection of the right kidney. 13. Status post tonsillectomy. SOCIAL HISTORY: Prior tobacco use as per above. No alcohol use. She lives in assisted living. She is a . FAMILY HISTORY: Positive for tuberculosis in her grandfather as per above. Coronary artery disease, hypertension, strokes. PHYSICAL EXAMINATION: General: Reveals a frail, chronically ill-appearing, white female who is comfortable at rest but does develop mild work of breathing with any exertion. Vital Signs: BP 134/97, heart rate 76, respiration rate 14, oxygen saturation 96% on 3 L per nasal cannula. HEENT: Mild temporal wasting. Pupils are equal and reactive and round to light and accommodation. Oropharynx is clear. Neck: Supple. Chest: Reveals increased AP diameter with increased tympany. There are crackles in the lung bases. Cardiac Examination: Distant heart sounds. Normal S1, normal S2. Abdomen: Soft without hepatosplenomegaly. Extremities: Reveal trace ankle edema. LABORATORIES: Chest x-ray reveals patchy bilateral pulmonary infiltrates, increased AP diameter, flattening of the diaphragm. Arterial blood gas reveals pH 7.47, pCO2 of 34, PO2 of 86. IMPRESSION: An 81-year-old with a history of tobacco use, chronic obstructive pulmonary disease, chronic hypoxemic respiratory failure, with progressive bilateral pulmonary infiltrates over the last 2 years. The patient has a history of tuberculosis exposure but her clinical course has not been consistent with tuberculosis. She denies fevers, chills, cough with productive sputum, hemoptysis, or progressive weight loss. The patient is on Multaq but her radiographic changes have been present prior to the initiation of this cardiac medication. This might represent a progressive pulmonary fibrosis such as idiopathic pulmonary fibrosis or may represent an atypical infection such as Mycobacterium avium complex disease. At this juncture, we will proceed with a CT scan of the thorax to help further with the differential. RECOMMENDATION: 1. Noncontrast CT scan of the thorax. 2. Continue oxygen for hypoxemic respiratory failure. 3. Obtain QuantiFERON gold TB test, although it is felt that active tuberculosis is less likely. 4. Additional recommendations pending hospital course. cc: MD Olivia Carballo MD
[2016-12-26] MEDS: LASIX IV SCH ×2 (06:09→19:16)
--- NOTE | 2016-12-26 07:46 | Diag Imaging Result Doc PS360 ---
EXAM: CT THORAX W/O CONTRAST HISTORY: pulmonary infiltrates TECHNIQUE: CT chest without. Dose reduction protocol. COMPARISON: None. FINDINGS: There are small bilateral pleural effusions. The one on the right is larger than one on the left. The right measures 2.5 cm posteriorly and inferiorly in the midline. Heart is enlarged. There are at least moderate coronary artery calcifications. No enlarged mediastinal nodes. Severe emphysematous changes are present. There are increased interstitial markings bilaterally. There is a nonspecific oblong 13 mm nodule anteriorly in the right middle lobe. No consolidation. IMPRESSION: 1.Severe emphysema 2.Cardiomegaly with small pleural effusions 3.Increased interstitial markings believed to be fibrosis 4.Small noncalcified pulmonary nodule anteriorly in the right middle lobe Electronically signed by Philip Stovall 12/26/2016 7:43 AM
[2016-12-26] MEDS: DUONEB (A & A) INH SCH ×3 (08:05→21:04)
[2016-12-26] MEDS: SPIRIVA INH SCH (08:10)
[2016-12-26] MEDS: FOLIC ACID PO SCH ×2 (08:29→23:11)
[2016-12-26] MEDS: PAXIL PO SCH (08:29)
[2016-12-26] MEDS: MULTAQ PO SCH ×2 (08:29→23:11)
[2016-12-26] MEDS: FLONASE NAS SCH ×2 (08:29→23:12)
[2016-12-26] MEDS: ASPIRIN PO SCH (08:29)
[2016-12-26] MEDS: LOVENOX SUBQ SCH (08:30)
--- NOTE | 2016-12-26 08:51 | PROGRESS NOTE ---
DATE: 12/26/2016 SUBJECTIVE: Ms. Oconnor was admitted to [facility] with acute on chronic respiratory failure with hypoxia secondary to severe chronic obstructive pulmonary disease and acute on chronic congestive heart failure secondary to diastolic dysfunction. A CT scan of the thorax demonstrated small bilateral pleural effusions and severe pulmonary fibrosis as well as severe emphysema. We placed her on a salt and fluid restricted diet, and have been aggressively diuresing her with Lasix. She has had urine output of approximately 800 mL. I added Symbicort to the Spiriva and ipratropium nebulizer treatments. She is maintaining O2 saturations of 92-96% on 3 L of O2. OBJECTIVE: Vital Signs: Temperature 98.3 degrees, pulse 79, respirations 17, blood pressure 152/68. CV: Regular rate and rhythm. Lungs: Distant breath sounds with increased period of expiration and faint crackles in the bases bilaterally. Abdomen: Soft, nontender, with active bowel sounds. Extremities: There is 1+ pitting edema. ASSESSMENT AND PLAN: 1. Acute on chronic respiratory failure secondary to acute on chronic congestive heart failure secondary to diastolic dysfunction. We will continue a salt and fluid restricted diet, and aggressive diuresis with Lasix. I am going to increase the diltiazem to 60 mg every 6 hours in order to improve cardiac compliance. I will recheck a PA and lateral chest x-ray in the morning. 2. Chronic renal insufficiency. Her creatinine was 2.5 on admission. Her most recent 24 hour urine demonstrated a creatinine clearance of 19. She has had vein mapping. She is considering dialysis. We have had a long discussion with her about dialysis. We told her that dialysis potentially would help us control her volume better which would potentially improve the heart failure but that dialysate itself would have no direct effect in terms of improving lung function. We talked about the potential complications of dialysis. She and her family are leaning towards proceeding with dialysis but have not made a final decision. 3. Paroxysmal atrial fibrillation. She remains in normal sinus rhythm. We will continue Cardizem for rate control, aspirin 81 mg daily, and Multaq 400 mg twice a day. cc: Olivia Massey MD
[2016-12-27] MEDS: CARDIZEM PO SCH ×4 (07:35→23:38)
[2016-12-27] MEDS: LASIX IV SCH ×3 (07:35→19:38)
[2016-12-27] MEDS: MULTAQ PO SCH ×2 (07:59→23:38)
[2016-12-27] MEDS: PAXIL PO SCH (07:59)
[2016-12-27] MEDS: FOLIC ACID PO SCH ×2 (07:59→23:38)
[2016-12-27] MEDS: LOVENOX SUBQ SCH (08:00)
[2016-12-27] MEDS: FLONASE NAS SCH ×2 (08:00→23:38)
[2016-12-27] MEDS: ASPIRIN PO SCH (08:00)
[2016-12-27] MEDS: DUONEB (A & A) INH SCH ×3 (08:17→21:07)
[2016-12-27] MEDS: SPIRIVA INH SCH (08:18)
--- NOTE | 2016-12-27 10:46 | PROGRESS NOTE ---
DATE: 12/27/2016 Ms. Amna Oocnnor was admitted to [facility] with acute on chronic respiratory failure with hypoxia secondary to acute on chronic congestive heart failure secondary to diastolic dysfunction. We initially placed her on a salt and fluid restricted diet and have aggressively diuresed her with Lasix. Her I Os were negative by 3000 mL since admission. She is maintaining O2 saturations of 93-94% on supplemental O2 at rest. With minimal activity her O2 saturations drop into the high 70s even on oxygen. Her CT scan demonstrated severe emphysema and diffuse pulmonary fibrosis. She is afebrile. Pulse 76, respirations 17, BP 158/74. CV: Regular rate and rhythm. Lungs: Distant breath sounds with increased period of expiration. Faint crackles in the bases bilaterally. Abdomen: Soft, nontender, with active bowel sounds. Extremities: Trace ankle edema. ASSESSMENT AND PLAN: Acute on chronic respiratory failure with hypoxia secondary to acute on chronic congestive heart failure secondary to diastolic dysfunction and end-stage emphysema and pulmonary fibrosis. Her O2 saturations are marginal in the low 90s at rest. She immediately desaturates with any sort of activity. We will continue a salt and fluid restricted diet and diurese her with Lasix. We will continue Spiriva, Symbicort and nebulizer treatments. I had a long discussion with Ms. Oconnor and her son today. She has chronic renal failure and diastolic congestive heart failure. Potentially dialysis would help us to manage her fluid volume, but we did talk about potential complications associated with chronic dialysis. I told her that even if we were able to eliminate the fluid as an issue in terms of causing shortness of breath, that in all likelihood, she would still have persistent shortness of breath due to the severe pulmonary fibrosis and COPD. I am really not sure at this point in time that the potential benefit of dialysis justifies the potential risks of chronic dialysis. We did broach the idea of hospice with them. She does have end-stage lung disease. She is not a candidate for any additional medical therapy or lung transplant. We had a long discussion about hospice and palliative care. I did speak to the [facility] and they are able to accommodate hospice care. The family is considering their options and will let me know later today. If they agree to hospice care, we will consult [facility] and make arrangements to prepare her for discharge back to the [facility] with hospice care. cc: Olivia Massey MD
[2016-12-27] MEDS ORDERED: CYANOCOBALAMIN IM SCH (11:00)
[2016-12-27] MEDS ORDERED: ATIVAN PO PRN (12:33)
[2016-12-27] MEDS: ROXANOL CONC. LIQUID PO PRN (23:37)
[2016-12-28] MEDS: CARDIZEM PO SCH ×4 (04:10→20:39)
[2016-12-28] MEDS: ROXANOL CONC. LIQUID PO PRN (06:48)
[2016-12-28] MEDS: LASIX IV SCH ×2 (06:49→20:39)
[2016-12-28] MEDS: DUONEB (A & A) INH SCH ×3 (07:59→20:49)
[2016-12-28] MEDS: SPIRIVA INH SCH (08:00)
--- NOTE | 2016-12-28 10:21 | PROGRESS NOTE ---
DATE: 12/28/2016 SUBJECTIVE: Mrs. Oconnor was admitted to [facility] with acute on chronic respiratory failure secondary to end-stage COPD and acute on chronic congestive heart failure secondary to diastolic dysfunction. She is breathing more comfortably at rest. She is maintaining O2 saturations of 94 to 96% on 3 L of O2. She still desaturates fairly quickly with any sort of physical activity. She did have an episode of air hunger and she was given Roxanol with improvement in her symptoms. She remains in normal sinus rhythm. Her heart rate is well controlled on diltiazem. OBJECTIVE: Vital signs: She is afebrile, pulse 77, respirations 20, BP 158/64. CV: Regular rate and rhythm. Lungs: Distant breath sounds with increased period of expiration. Abdomen: Soft, nontender, with active bowel sounds. Extremities: Trace ankle edema. ASSESSMENT AND PLAN: 1. Acute on chronic respiratory failure secondary to acute on chronic congestive heart failure secondary to diastolic dysfunction and end-stage chronic obstructive pulmonary disease and pulmonary fibrosis. We will continue a salt and fluid restricted diet and aggressive diuresis with Lasix. We will switch her over to Zaroxolyn 2.5 mg daily in the morning. We will continue Lasix 40 mg daily and she may take an additional Lasix if she gains 1-2 pounds in 24 hours. We will continue her regular nebulizer treatments. She will be admitted to hospice care tomorrow. 2. Paroxysmal atrial fibrillation. She remains in normal sinus rhythm. We will continue diltiazem for rate control and Multaq 400 mg b.i.d. cc: Olivia Massey MD
[2016-12-28] MEDS: ASPIRIN PO SCH (10:34)
[2016-12-28] MEDS: FOLIC ACID PO SCH ×2 (10:34→20:39)
[2016-12-28] MEDS: MULTAQ PO SCH ×2 (10:34→20:39)
[2016-12-28] MEDS: LOVENOX SUBQ SCH (10:35)
[2016-12-28] MEDS: PAXIL PO SCH (10:35)
[2016-12-28] MEDS: FLONASE NAS SCH ×2 (10:35→21:05)
[2016-12-29] MEDS: CARDIZEM PO SCH ×2 (02:06→09:22)
[2016-12-29] MEDS: LASIX IV SCH ×2 (05:04→06:25)
[2016-12-29 07:43] VITALS: BP 167/80
[2016-12-29] MEDS: SPIRIVA INH SCH (08:06)
[2016-12-29] MEDS: DUONEB (A & A) INH SCH (08:06)
[2016-12-29] MEDS ORDERED: ZAROXOLYN PO SCH (09:00)
[2016-12-29] MEDS: MULTAQ PO SCH (09:22)
[2016-12-29] MEDS: ASPIRIN PO SCH (09:22)
[2016-12-29] MEDS: FOLIC ACID PO SCH (09:22)
[2016-12-29] MEDS: PAXIL PO SCH (09:22)
[2016-12-29] MEDS: FLONASE NAS SCH (09:23)
[2016-12-29] MEDS ORDERED: LASIX PO SCH (09:30)
--- NOTE | 2016-12-29 22:35 | DISCHARGE SUMMARY ---
ADMISSION DATE: 12/25/2016 DISCHARGE DATE: 12/29/2016 DISCHARGE DIAGNOSES: 1. Acute on chronic respiratory failure with hypoxia secondary to acute on chronic congestive heart failure secondary to diastolic dysfunction. 2. Chronic respiratory failure with hypoxia secondary to end-stage chronic obstructive pulmonary disease and pulmonary fibrosis. 3. Paroxysmal atrial fibrillation. 4. Renal artery stenosis. 5. Labile hypertension secondary to renal artery stenosis. 6. Chronic iron deficiency anemia. 7. Chronic renal failure. 8. No Code Blue Level 1. DISCHARGE INSTRUCTIONS: 1. The patient will be transferred back to the [facility] with home hospice. 2. Activity as tolerated. 3. No added salt diet with 1500 mL fluid restriction. 4. Medications. O2 at 4 L per nasal cannula continuously, DuoNeb nebulized t.i.d., aspirin 81 mg daily, diltiazem 60 mg q.6 hours, 5. Multaq 400 mg b.i.d., Flonase nasal spray 2 sprays to the nostril b.i.d., folic acid 1 mg daily, Lasix 40 mg daily, may take an additional Lasix if she gains 1-2 pounds in 24 hours, Ativan 0.5 mg q.6 hours p.r.n. agitation, Zaroxolyn 5 mg each morning 30 minutes prior to the morning dosage of Lasix, Roxanol concentrated liquid 10 mg q.2 hours p.r.n. dyspnea and air hunger, Paxil 20 mg daily, Spiriva 1 inhalation daily, Advair 250/50 two puffs b.i.d. PHYSICAL EXAMINATION: General: This is a chronically ill-appearing 81-year-old lady in no apparent distress. Vital signs: She is afebrile. Pulse 70, respirations 20, BP 160/80 HEENT: Fundi with arteriolar wall thickening. Pupils equal, round, reactive to light. Extraocular eye movements intact. TMs without bullae. Neck: Supple. No masses, JVD or bruits. CV: Regular rate and rhythm. Lungs: Distant breath sounds with increased period of expiration. Abdomen: Soft, nontender with active bowel sounds. Extremities: Trace ankle edema. HOSPITAL COURSE: Mrs. Amna Oconnor is an 81-year-old lady with history of chronic respiratory failure with hypoxia secondary to chronic congestive heart failure and end-stage COPD with pulmonary fibrosis. She presented to the office today complaining of increasing shortness of breath, increasing work of breathing, increasing peripheral edema, PND and orthopnea. Her chest x- ray demonstrated chronic fibrotic change and increased interstitial edema. Her O2 saturation was 86% on 3 L of O2. The patient was admitted to [facility] where she was placed on a salt and fluid restricted diet and was aggressively diuresed with Lasix. We titrated upward on the Cardizem to 60 mg q.6 hours to increase cardiac compliance. Once she diuresed aggressively we switched her to Zaroxolyn in the morning and continued Lasix daily with an additional Lasix if she gained 1-2 pounds in 24 hours. We were able to successfully dry her out and subsequent chest x- ray showed interval improvement in the degree of interstitial edema. She does have a history of severe COPD and pulmonary fibrosis. Dr. Zuniga saw her in consultation. A CT scan of the chest showed severe pulmonary fibrosis and severe emphysema. He did not feel that she was a candidate for lung or chemotherapy type agents for her underlying pulmonary fibrosis. He felt that she had end-stage lung disease and would be an appropriate candidate for hospice. She does have a longstanding history of chronic renal failure. We had talked to her about the possibility of dialysis. We told her that the potential benefits of dialysis would be improved volume control but we did talk about various potential complications of chronic dialysis. I also explained to her that even if we were able to fully control her fluid volume with dialysis that it would not change the fact that she had end-stage lung disease. She has been hospitalized multiple times this year. We felt that given her continued clinical decline, multiple hospitalizations and the fact that she had chosen not to pursue dialysis that she would be an excellent candidate for hospice. The family was agreeable to hospice care and [facility] was consulted to admit the patient for home hospice care. We did add Roxanol to use as needed for air hunger. She does have a living will and has stated that in the event of a cardiopulmonary arrest that no heroic measures should be undertaken. A No Code Blue Level 1 has been established. Having reached maximum hospital benefit, the patient was discharged in terminal condition. cc: Olivia Massey MD
== END 2016-12-29 11:03 | disposition hospice, home (50) ==
LOC: DIRADM 13:40 → 3N 14:51 → UNDODISIN 12-27 11:00
PROVIDERS: ADMIT Internal Medicine; ATTEND Internal Medicine